=== PATIENT | male | born 1950 | race Caucasian/White ===

== ENCOUNTER → 2017-09-29 | Outpatient (CLI) | payer MEDICARE, BC ==
[~2017-09-29] MED LIST: ASCO500 PO; BUPR150ER PO; CYCL10 PO; CYSTEX TABLET1 EACH PO; DANTROLENE SODI PO; ENOX120I SC; Hytrin2 MG; Lisinopril2.5 MG PO; METH1TAB8 PO; Norco 5-325 Ta1 EACH PO; Omeprazole20 M1; Prinivil10 MG PO; TERA5 PO; VALA500 PO; VALACYCLOVIR1000 MG PO; Vitamin D400 UNI2 PO; WARF5 PO
== END | disposition home or self-care (01) ==
LOC: LAB SHORT 15:52 → LAB EV 15:52
DX: R22.31 Localized swelling, mass and lump, right upper limb (principal)
CPT/HCPCS: 84550

== ENCOUNTER → 2018-02-13 | Outpatient (CLI) | payer MEDICARE, BC ==
[2018-02-15 15:37] LABS: Campylobacter Sp Not Detected (NOT DETECT)
[2018-02-15 15:38] LABS: Adenovirus F 40/41 Not Detected (NOT DETECT); Astrovirus Not Detected (NOT DETECT); Cryptosporidium Not Detected (NOT DETECT); Cyclospora Cayetanensis Not Detected (NOT DETECT); E. Coli O157 Not Detected (NOT DETECT); Entamoeba Histolytica Not Detected (NOT DETECT); Enteroaggregative E. coli-EAEC Not Detected (NOT DETECT); Enteropathogenic E. coli-EPEC Not Detected (NOT DETECT); Enterotoxigenic E. coli-ETEC Not Detected (NOT DETECT); Giardia Lamblia Not Detected (NOT DETECT); Norovirus GI/GII Not Detected (NOT DETECT); Plesiomonas Shigelloides Not Detected (NOT DETECT); Rotavirus A Not Detected (NOT DETECT); Salmonella Sp Not Detected (NOT DETECT); Sapovirus Not Detected (NOT DETECT); Shiga Toxin-prod E. coli-STEC Not Detected (NOT DETECT); Shigella/Enteroin E. coli-EIEC Not Detected (NOT DETECT); Vibrio Cholerae Not Detected (NOT DETECT); Vibrio Sp Not Detected (NOT DETECT); Yersinia Enterocolitica Not Detected (NOT DETECT)
== END | disposition home or self-care (01) ==
LOC: LAB EV 02:00
PROVIDERS: Internal Medicine
DX: R19.7 Diarrhea, unspecified (principal)
CPT/HCPCS: 87507

== ENCOUNTER → 2019-02-15 | Outpatient (CLI) | payer MEDICARE, BC ==
[~2019-02-15] MED LIST changes: +ACET325 PO; +ASPI325 PO; +Acidophilus La100 GM PO; +COLCRYS0.6 MG PO; +CYAN500 PO; +Culturelle1 CAP PO; +DOXY100 PO; +GABA100 PO; -Hytrin2 MG; +Hytrin2 MG PO; +JUVEN PACKET1 EACH PO; +LEVO750 PO; -Omeprazole20 M1; +Omeprazole20 M1 PO; +Pedi-Dri 100,0060 GM TOP; +Uloric80 MG PO; +ZOLP5 PO
== END | disposition home or self-care (01) ==
LOC: LAB EV 11:30 → LAB SHORT 11:30
DX: N39.0 Urinary tract infection, site not specified (principal)
CPT/HCPCS: 87077; 87086; 87186

== ENCOUNTER → 2020-06-03 | Outpatient (CLI) | payer MEDICARE, BC ==
[~2020-06-03] MED LIST changes: +CEFTRIAXON1 GM/50 M1 IV; +HYDCHL25 PO; +METO25ER PO; +METOPROLOL SUCC25 MG PO; +VANCOMYCIN HCL1 G1 IV; +ZINC15 PO
[2020-06-03 15:23] LABS: BASOPHILS ABSOLUTE AUTO 0.02 K/mm3 (0.00-0.23); BASOPHILS PERCENT AUTO 0 % (0-2); EOSINOPHILS PERCENT AUTO 2 % (0-6); Hematocrit 43.1 % (37.0-53.0); Hemoglobin 14.5 g/dL (13.5-17.5); IMMATURE GRAN ABSOLUTE AUTO 0.04 K/mm3 (0.00-0.10); IMMATURE GRAN PERCENT AUTO 1 % (0-1); LYMPHOCYTES ABSOLUTE AUTO 1.48 K/mm3 (0.84-5.20); LYMPHOCYTES PERCENT AUTO 23 % (21-46); MONOCYTES ABSOLUTE AUTO 0.79 K/mm3 (0.16-1.47); MONOCYTES PERCENT AUTO 12 % (4-13); Mean Corpuscular HGB Conc 33.6 g/dL (31.5-36.5); Mean Corpuscular Volume 95 fL (80-100); Mean Platelet Volume 10.9 fL (9.1-12.4); NEUTROPHILS ABSOLUTE AUTO 3.98 K/mm3 (1.96-9.15); NEUTROPHILS PERCENT AUTO 62 % (41-73); Platelet Count 233 K/mm3 (150-400); RDW Coefficient Variation 14.3 % (11.7-14.2); Red Blood Cell Count 4.53 M/mm3 (4.30-5.90); White Blood Cell Count 6.41 K/mm3 (4.00-11.30)
[2020-06-03 15:37] LABS: Alanine Aminotransfer (ALT/SGP 16 U/L (12-78); Albumin, Blood 3.1 g/dL (3.4-5.0); Albumin/Globulin Ratio 0.8 (0.8-1.8); Alk Phos 109 U/L (40-126); Anion Gap 13 mmol/L (6-16); Aspartate Aminotrans (AST/SGOT 17 U/L (12-37); Bilirubin, Total 0.7 mg/dL (0.1-1.0); Blood Urea Nitrogen 8 mg/dL (8-24); CO2, Blood 25 mmol/L (21-32); Calcium, Blood 8.6 mg/dL (8.5-10.1); Chloride, Blood 102 mmol/L (98-108); Creatinine, Blood 0.89 mg/dL (0.60-1.20); Glomerular Filtration Rate >60 (60-); Glucose, Blood 123 mg/dL (70-99); Potassium, Blood 3.4 mmol/L (3.5-5.5); Sodium, Blood 140 mmol/L (136-145); Total Protein, Blood 7.1 g/dL (6.4-8.2)
== END ==
LOC: LAB EV 15:17 → LAB SHORT 15:17
PROVIDERS: General Practice
DX: L89.90 Pressure ulcer of unspecified site, unspecified stage (principal)
CPT/HCPCS: 80053; 85025; 87070; 87075; 87077; 87147; 87186; 87205

== ENCOUNTER 2020-06-07 09:09 | Day surgery (SDC) | payer OTHER, MEDICARE, BC ==
[~2020-06-07] VITALS: Ht 167.6 cm; Wt 71.0 kg
[~2020-06-07 09:09] MED LIST changes: -CEFTRIAXON1 GM/50 M1 IV; -HYDCHL25 PO; -METO25ER PO; -METOPROLOL SUCC25 MG PO; -VANCOMYCIN HCL1 G1 IV; -ZINC15 PO
[2020-06-08] MEDS ORDERED: CEFTRIAXON1 GM/50 M1 IV (16:19)
[2020-06-08] MEDS ORDERED: VANCOMYCIN HCL1 G1 IV (16:20)
[2020-06-08] MEDS ORDERED: ZOLP5 PO (16:21)
== END 2020-06-07 23:37 | disposition home or self-care (01) ==
LOC: WOUND 09:09
DX: I96 Gangrene, not elsewhere classified (principal); L89.620 Pressure ulcer of left heel, unstageable; L89.610 Pressure ulcer of right heel, unstageable; I89.0 Lymphedema, not elsewhere classified; H74.90 Unspecified disorder of middle ear and mastoid, unspecified ear; I10 Essential (primary) hypertension; M06.9 Rheumatoid arthritis, unspecified; M19.90 Unspecified osteoarthritis, unspecified site; G82.20 Paraplegia, unspecified; M10.9 Gout, unspecified; N31.9 Neuromuscular dysfunction of bladder, unspecified; E55.9 Vitamin D deficiency, unspecified; F32.9 Major depressive disorder, single episode, unspecified; F41.9 Anxiety disorder, unspecified; K21.9 Gastro-esophageal reflux disease without esophagitis; M89.49 Other hypertrophic osteoarthropathy, multiple sites; Z88.0 Allergy status to penicillin; Z88.1 Allergy status to other antibiotic agents; Z88.2 Allergy status to sulfonamides; Z79.82 Long term (current) use of aspirin; Z79.899 Other long term (current) drug therapy; Z87.891 Personal history of nicotine dependence
CPT/HCPCS: G0463

== ENCOUNTER 2020-06-08 14:41 | Day surgery (SDC) | payer OTHER, MEDICARE, BC ==
[2020-06-08] MEDS ORDERED: CEFTRIAXON1 GM/50 M1 IV (16:19)
[2020-06-08] MEDS ORDERED: VANCOMYCIN HCL1 G1 IV (16:20)
[2020-06-08] MEDS ORDERED: ZOLP5 PO (16:21)
== END 2020-06-08 17:21 | disposition home or self-care (01) ==
LOC: ATC 14:41
DX: M86.9 Osteomyelitis, unspecified (principal); L89.623 Pressure ulcer of left heel, stage 3; L89.613 Pressure ulcer of right heel, stage 3; Z87.891 Personal history of nicotine dependence; Z88.2 Allergy status to sulfonamides; Z88.1 Allergy status to other antibiotic agents
CPT/HCPCS: 96365; 96367; J0696; J3370; J7050

== ENCOUNTER 2020-06-09 07:15 | Day surgery (SDC) | payer OTHER, MEDICARE, BC ==
[~2020-06-09 07:15] MED LIST changes: +CEFTRIAXON1 GM/50 M1 IV; +VANCOMYCIN HCL1 G1 IV
== END 2020-06-09 15:55 | disposition home or self-care (01) ==
LOC: ATC 07:15
DX: M86.9 Osteomyelitis, unspecified (principal); M10.9 Gout, unspecified; M89.49 Other hypertrophic osteoarthropathy, multiple sites; G82.20 Paraplegia, unspecified; I10 Essential (primary) hypertension; N31.9 Neuromuscular dysfunction of bladder, unspecified; K21.9 Gastro-esophageal reflux disease without esophagitis; E55.9 Vitamin D deficiency, unspecified; F32.9 Major depressive disorder, single episode, unspecified; Z87.891 Personal history of nicotine dependence; Z79.2 Long term (current) use of antibiotics; Z79.82 Long term (current) use of aspirin; Z79.899 Other long term (current) drug therapy; Z88.0 Allergy status to penicillin; Z88.1 Allergy status to other antibiotic agents; Z88.2 Allergy status to sulfonamides
CPT/HCPCS: J0696; J3370

== ENCOUNTER 2020-06-12 13:27 | Day surgery (SDC) | payer OTHER, MEDICARE, BC ==
--- NOTE | 2020-06-12 15:50 | NUR ---
IV SITE WRAPPED WITH 2X2'S AND COBAN FOR INFUSION TOMORROW
== END 2020-06-12 15:15 | disposition home or self-care (01) ==
LOC: ATC 13:27
DX: M86.9 Osteomyelitis, unspecified (principal); L89.623 Pressure ulcer of left heel, stage 3; L89.613 Pressure ulcer of right heel, stage 3; G82.20 Paraplegia, unspecified; N31.9 Neuromuscular dysfunction of bladder, unspecified; M89.49 Other hypertrophic osteoarthropathy, multiple sites; M10.9 Gout, unspecified; I10 Essential (primary) hypertension; K21.9 Gastro-esophageal reflux disease without esophagitis; F41.9 Anxiety disorder, unspecified; E55.9 Vitamin D deficiency, unspecified; F32.9 Major depressive disorder, single episode, unspecified; Z87.891 Personal history of nicotine dependence; Z88.0 Allergy status to penicillin; Z88.1 Allergy status to other antibiotic agents; Z88.2 Allergy status to sulfonamides; Z79.82 Long term (current) use of aspirin; Z79.2 Long term (current) use of antibiotics; Z79.899 Other long term (current) drug therapy
CPT/HCPCS: 96365; J0696; J3370; J7050

== ENCOUNTER 2020-06-13 00:15 | Day surgery (SDC) | payer OTHER, MEDICARE, BC | END 2020-06-13 15:40 | disposition home or self-care (01) | LOC: ATC 00:15 | DX: M86.9 Osteomyelitis, unspecified (principal); L89.893 Pressure ulcer of other site, stage 3; G82.20 Paraplegia, unspecified; S24.103S Unspecified injury at T7-T10 level of thoracic spinal cord, sequela; N31.8 Other neuromuscular dysfunction of bladder; I10 Essential (primary) hypertension; K21.9 Gastro-esophageal reflux disease without esophagitis; E55.9 Vitamin D deficiency, unspecified; E53.8 Deficiency of other specified B group vitamins; Z87.891 Personal history of nicotine dependence; Z88.1 Allergy status to other antibiotic agents; Z88.2 Allergy status to sulfonamides; Z88.8 Allergy status to other drugs, medicaments and biological substances | CPT/HCPCS: 96365; J0696 ==

== ENCOUNTER 2020-06-14 00:09 | Day surgery (SDC) | payer OTHER, MEDICARE, BC | END 2020-06-14 15:10 | disposition home or self-care (01) | LOC: ATC 00:09 | DX: M86.9 Osteomyelitis, unspecified (principal); L89.613 Pressure ulcer of right heel, stage 3; L89.623 Pressure ulcer of left heel, stage 3; G82.20 Paraplegia, unspecified; N31.9 Neuromuscular dysfunction of bladder, unspecified; M10.9 Gout, unspecified; I10 Essential (primary) hypertension; E55.9 Vitamin D deficiency, unspecified; F32.9 Major depressive disorder, single episode, unspecified; M19.90 Unspecified osteoarthritis, unspecified site; Z88.0 Allergy status to penicillin; Z88.1 Allergy status to other antibiotic agents; Z88.2 Allergy status to sulfonamides; Z88.8 Allergy status to other drugs, medicaments and biological substances; Z79.2 Long term (current) use of antibiotics; Z79.82 Long term (current) use of aspirin; Z79.1 Long term (current) use of non-steroidal anti-inflammatories (NSAID); Z79.899 Other long term (current) drug therapy; Z87.891 Personal history of nicotine dependence | CPT/HCPCS: 96365; J0696 ==

== ENCOUNTER 2020-06-14 00:20 | Day surgery (SDC) | payer OTHER, MEDICARE, BC | END 2020-06-14 23:59 | disposition home or self-care (01) | LOC: WOUND 00:20 | DX: I96 Gangrene, not elsewhere classified (principal); L89.622 Pressure ulcer of left heel, stage 2; L89.612 Pressure ulcer of right heel, stage 2; M86.8X7 Other osteomyelitis, ankle and foot; N31.9 Neuromuscular dysfunction of bladder, unspecified; M89.49 Other hypertrophic osteoarthropathy, multiple sites; M10.9 Gout, unspecified; K21.9 Gastro-esophageal reflux disease without esophagitis; E55.9 Vitamin D deficiency, unspecified; I10 Essential (primary) hypertension; H74.90 Unspecified disorder of middle ear and mastoid, unspecified ear; I89.0 Lymphedema, not elsewhere classified; M06.9 Rheumatoid arthritis, unspecified; G82.20 Paraplegia, unspecified; F41.9 Anxiety disorder, unspecified; F32.9 Major depressive disorder, single episode, unspecified; Z87.891 Personal history of nicotine dependence; Z88.0 Allergy status to penicillin; Z88.1 Allergy status to other antibiotic agents; Z88.2 Allergy status to sulfonamides; Z79.82 Long term (current) use of aspirin; Z79.899 Other long term (current) drug therapy | CPT/HCPCS: A9270 ==

== ENCOUNTER 2020-06-15 01:58 | Day surgery (SDC) | payer OTHER, MEDICARE, BC | END 2020-06-15 14:50 | disposition home or self-care (01) | LOC: ATC 01:58 | DX: M86.9 Osteomyelitis, unspecified (principal); L89.613 Pressure ulcer of right heel, stage 3; L89.623 Pressure ulcer of left heel, stage 3; G82.20 Paraplegia, unspecified; N31.9 Neuromuscular dysfunction of bladder, unspecified; M10.9 Gout, unspecified; I10 Essential (primary) hypertension; E55.9 Vitamin D deficiency, unspecified; F32.9 Major depressive disorder, single episode, unspecified; M19.90 Unspecified osteoarthritis, unspecified site; Z88.0 Allergy status to penicillin; Z88.1 Allergy status to other antibiotic agents; Z88.2 Allergy status to sulfonamides; Z88.8 Allergy status to other drugs, medicaments and biological substances; Z79.2 Long term (current) use of antibiotics; Z79.82 Long term (current) use of aspirin; Z79.1 Long term (current) use of non-steroidal anti-inflammatories (NSAID); Z79.899 Other long term (current) drug therapy; Z87.891 Personal history of nicotine dependence | CPT/HCPCS: 96365; J0696 ==

== ENCOUNTER 2020-06-16 00:28 | Day surgery (SDC) | payer OTHER, MEDICARE, BC ==
--- NOTE | 2020-06-16 14:30 | NUR ---
WOUND CLEANSED WITH SKINTEGRITY CLEANSER. [facility] AND COVERED WITH A BORDERED FOAM DRESSING PER MD ORDERS.
== END 2020-06-16 14:23 | disposition home or self-care (01) ==
LOC: ATC 00:28
DX: M86.9 Osteomyelitis, unspecified (principal); L89.613 Pressure ulcer of right heel, stage 3; L89.623 Pressure ulcer of left heel, stage 3; G82.20 Paraplegia, unspecified; N31.9 Neuromuscular dysfunction of bladder, unspecified; M10.9 Gout, unspecified; I10 Essential (primary) hypertension; E55.9 Vitamin D deficiency, unspecified; F32.9 Major depressive disorder, single episode, unspecified; M19.90 Unspecified osteoarthritis, unspecified site; Z88.0 Allergy status to penicillin; Z88.1 Allergy status to other antibiotic agents; Z88.2 Allergy status to sulfonamides; Z88.8 Allergy status to other drugs, medicaments and biological substances; Z79.2 Long term (current) use of antibiotics; Z79.82 Long term (current) use of aspirin; Z79.1 Long term (current) use of non-steroidal anti-inflammatories (NSAID); Z79.899 Other long term (current) drug therapy; Z87.891 Personal history of nicotine dependence
CPT/HCPCS: 96365; 99212; J0696

== ENCOUNTER 2020-06-17 01:25 | Day surgery (SDC) | payer OTHER, MEDICARE, BC | END 2020-06-17 14:37 | disposition home or self-care (01) | LOC: ATC 01:25 | DX: L89.613 Pressure ulcer of right heel, stage 3 (principal); L89.623 Pressure ulcer of left heel, stage 3; M86.9 Osteomyelitis, unspecified; G82.20 Paraplegia, unspecified; N31.9 Neuromuscular dysfunction of bladder, unspecified; M10.9 Gout, unspecified; I10 Essential (primary) hypertension; E55.9 Vitamin D deficiency, unspecified; F32.9 Major depressive disorder, single episode, unspecified; M19.90 Unspecified osteoarthritis, unspecified site; K21.9 Gastro-esophageal reflux disease without esophagitis; I26.99 Other pulmonary embolism without acute cor pulmonale; E53.8 Deficiency of other specified B group vitamins; D75.89 Other specified diseases of blood and blood-forming organs; R73.09 Other abnormal glucose; F41.9 Anxiety disorder, unspecified; Z79.2 Long term (current) use of antibiotics; Z79.82 Long term (current) use of aspirin; Z79.1 Long term (current) use of non-steroidal anti-inflammatories (NSAID); Z79.899 Other long term (current) drug therapy; Z87.891 Personal history of nicotine dependence; Z88.1 Allergy status to other antibiotic agents; Z88.2 Allergy status to sulfonamides; Z88.8 Allergy status to other drugs, medicaments and biological substances | CPT/HCPCS: 96365; J0696 ==

== ENCOUNTER 2020-06-18 00:15 | Day surgery (SDC) | payer OTHER, MEDICARE, BC ==
--- NOTE | 2020-06-18 13:59 | NUR ---
CALLED DR BROWNLEE'S OFFICE REGARDING PT'S ELEVATED BP. PT ASYMPTOMATIC WITH ELEVATED BP. INFORMATION REGARDING BP TAKEN BY ANOOP AT DR BROWNLEE'S OFFICE. ANOOP STATES HE WILL GIVE DR BROWNLEE THE MESSAGE SOON SHE IS AVAILABLE. ANOOP ADVISED PT IS ONLY IN OUR CLINIC FOR THE NEXT 15-20 MIN AND I NEED DIRECTION DARRELL. HE STATES HE UNDERSTANDS AND HE WILL GIVE HER THE MESSAGE.
== END 2020-06-18 14:15 | disposition home or self-care (01) ==
LOC: ATC 00:15
DX: M86.9 Osteomyelitis, unspecified (principal); Z79.2 Long term (current) use of antibiotics; Z88.0 Allergy status to penicillin; Z88.1 Allergy status to other antibiotic agents; Z88.2 Allergy status to sulfonamides; Z88.8 Allergy status to other drugs, medicaments and biological substances; Z79.899 Other long term (current) drug therapy; Z79.82 Long term (current) use of aspirin
CPT/HCPCS: 96365; J0696

== ENCOUNTER 2020-06-18 00:31 | Day surgery (SDC) | payer OTHER, MEDICARE, BC | END 2020-06-18 23:02 | disposition home or self-care (01) | LOC: WOUND 00:31 | DX: L03.115 Cellulitis of right lower limb (principal); L03.116 Cellulitis of left lower limb; G82.21 Paraplegia, complete; L97.512 Non-pressure chronic ulcer of other part of right foot with fat layer exposed; L97.528 Non-pressure chronic ulcer of other part of left foot with other specified severity; Z79.82 Long term (current) use of aspirin; Z79.899 Other long term (current) drug therapy; Z88.0 Allergy status to penicillin; Z88.1 Allergy status to other antibiotic agents; Z88.2 Allergy status to sulfonamides | CPT/HCPCS: G0463 ==

== ENCOUNTER 2020-06-19 00:14 | Day surgery (SDC) | payer OTHER, MEDICARE, BC ==
[2020-06-20] MEDS ORDERED: METO25ER PO (14:08)
== END 2020-06-19 15:12 | disposition home or self-care (01) ==
LOC: ATC 00:14
DX: M86.9 Osteomyelitis, unspecified (principal); Z79.2 Long term (current) use of antibiotics; Z79.899 Other long term (current) drug therapy; Z88.0 Allergy status to penicillin; Z88.1 Allergy status to other antibiotic agents; Z88.2 Allergy status to sulfonamides; Z79.82 Long term (current) use of aspirin
CPT/HCPCS: 96365; J0696

== ENCOUNTER 2020-06-20 00:32 | Day surgery (SDC) | payer OTHER, MEDICARE, BC ==
--- NOTE | 2020-06-20 14:07 | NUR ---
IV SITE WRAPPED WITH 2X2S AND COBAN FOR USE TOMORROW
[2020-06-20] MEDS ORDERED: METO25ER PO (14:08)
[2020-06-21] MEDS ORDERED: METOPROLOL SUCC25 MG PO (13:56)
== END 2020-06-20 14:08 | disposition home or self-care (01) ==
LOC: ATC 00:32
DX: M86.9 Osteomyelitis, unspecified (principal); L89.623 Pressure ulcer of left heel, stage 3; L89.613 Pressure ulcer of right heel, stage 3; G82.20 Paraplegia, unspecified; N31.9 Neuromuscular dysfunction of bladder, unspecified; M10.9 Gout, unspecified; I10 Essential (primary) hypertension; K21.9 Gastro-esophageal reflux disease without esophagitis; E55.9 Vitamin D deficiency, unspecified; Z87.891 Personal history of nicotine dependence; Z79.2 Long term (current) use of antibiotics; Z88.0 Allergy status to penicillin; Z88.1 Allergy status to other antibiotic agents; Z88.2 Allergy status to sulfonamides; Z79.82 Long term (current) use of aspirin; Z79.899 Other long term (current) drug therapy
CPT/HCPCS: 96365; J0696

== ENCOUNTER 2020-06-20 00:44 | Day surgery (SDC) | payer OTHER, MEDICARE, BC ==
[2020-06-20] MEDS ORDERED: METO25ER PO (14:08)
[2020-06-21] MEDS ORDERED: METOPROLOL SUCC25 MG PO (13:56)
== END 2020-06-20 23:14 | disposition home or self-care (01) ==
LOC: WOUND 00:44
DX: L97.512 Non-pressure chronic ulcer of other part of right foot with fat layer exposed (principal); L97.528 Non-pressure chronic ulcer of other part of left foot with other specified severity; M86.9 Osteomyelitis, unspecified; G82.21 Paraplegia, complete
CPT/HCPCS: G0463

== ENCOUNTER 2020-06-21 01:27 | Day surgery (SDC) | payer OTHER, MEDICARE, BC ==
[~2020-06-21 01:27] MED LIST changes: +METO25ER PO
[2020-06-21] MEDS ORDERED: METOPROLOL SUCC25 MG PO (13:56)
== END 2020-06-21 14:17 | disposition home or self-care (01) ==
LOC: ATC 01:27
DX: M86.9 Osteomyelitis, unspecified (principal); L89.623 Pressure ulcer of left heel, stage 3; L89.613 Pressure ulcer of right heel, stage 3; G82.20 Paraplegia, unspecified; N31.9 Neuromuscular dysfunction of bladder, unspecified; M10.9 Gout, unspecified; I10 Essential (primary) hypertension; K21.9 Gastro-esophageal reflux disease without esophagitis; E55.9 Vitamin D deficiency, unspecified; Z87.891 Personal history of nicotine dependence; Z79.2 Long term (current) use of antibiotics; Z79.82 Long term (current) use of aspirin; Z79.899 Other long term (current) drug therapy; Z88.0 Allergy status to penicillin; Z88.1 Allergy status to other antibiotic agents; Z88.2 Allergy status to sulfonamides
CPT/HCPCS: 96365; J0696

== ENCOUNTER 2020-06-22 00:25 | Day surgery (SDC) | payer OTHER, MEDICARE, BC ==
[~2020-06-22 00:25] MED LIST changes: +METOPROLOL SUCC25 MG PO
== END 2020-06-22 15:05 | disposition home or self-care (01) ==
LOC: ATC 00:25
DX: M86.9 Osteomyelitis, unspecified (principal); L89.893 Pressure ulcer of other site, stage 3; L89.623 Pressure ulcer of left heel, stage 3; G82.20 Paraplegia, unspecified; I10 Essential (primary) hypertension; S24.103S Unspecified injury at T7-T10 level of thoracic spinal cord, sequela; Z88.1 Allergy status to other antibiotic agents; Z88.2 Allergy status to sulfonamides; Z86.711 Personal history of pulmonary embolism; Z87.891 Personal history of nicotine dependence; Z99.3 Dependence on wheelchair; V00-Y99 External causes of morbidity
CPT/HCPCS: 96365; J0696

== ENCOUNTER 2020-06-22 00:33 | Day surgery (SDC) | payer OTHER, MEDICARE, BC | END 2020-06-22 22:49 | disposition home or self-care (01) | LOC: WOUND 00:33 | DX: L97.512 Non-pressure chronic ulcer of other part of right foot with fat layer exposed (principal); L97.528 Non-pressure chronic ulcer of other part of left foot with other specified severity; M86.9 Osteomyelitis, unspecified; G82.21 Paraplegia, complete; I10 Essential (primary) hypertension; K21.9 Gastro-esophageal reflux disease without esophagitis; F41.8 Other specified anxiety disorders; G82.20 Paraplegia, unspecified; Z87.891 Personal history of nicotine dependence ==

== ENCOUNTER 2020-06-23 01:22 | Day surgery (SDC) | payer OTHER, MEDICARE, BC | END 2020-06-23 14:31 | disposition home or self-care (01) | LOC: ATC 01:22 | DX: M86.9 Osteomyelitis, unspecified (principal); L89.893 Pressure ulcer of other site, stage 3; G82.20 Paraplegia, unspecified; S24.103S Unspecified injury at T7-T10 level of thoracic spinal cord, sequela; M15.9 Polyosteoarthritis, unspecified; M10.9 Gout, unspecified; I10 Essential (primary) hypertension; K21.9 Gastro-esophageal reflux disease without esophagitis; E55.9 Vitamin D deficiency, unspecified; N31.9 Neuromuscular dysfunction of bladder, unspecified; Z86.711 Personal history of pulmonary embolism; Z88.0 Allergy status to penicillin; Z88.2 Allergy status to sulfonamides; Z79.82 Long term (current) use of aspirin; Z87.891 Personal history of nicotine dependence | CPT/HCPCS: 96365; J0696 ==

== ENCOUNTER 2020-06-24 00:21 | Day surgery (SDC) | payer OTHER, MEDICARE, BC | END 2020-06-24 14:48 | disposition home or self-care (01) | LOC: ATC 00:21 | DX: M86.9 Osteomyelitis, unspecified (principal); G82.20 Paraplegia, unspecified; N31.9 Neuromuscular dysfunction of bladder, unspecified; S24.103S Unspecified injury at T7-T10 level of thoracic spinal cord, sequela; E55.9 Vitamin D deficiency, unspecified; E53.8 Deficiency of other specified B group vitamins; I10 Essential (primary) hypertension; M10.9 Gout, unspecified; K21.9 Gastro-esophageal reflux disease without esophagitis; Z87.891 Personal history of nicotine dependence; Z88.1 Allergy status to other antibiotic agents; Z88.2 Allergy status to sulfonamides | CPT/HCPCS: 96365; J0696 ==

== ENCOUNTER 2020-06-25 00:15 | Day surgery (SDC) | payer OTHER, MEDICARE, BC | END 2020-06-25 13:56 | disposition home or self-care (01) | LOC: ATC 00:15 | DX: M86.9 Osteomyelitis, unspecified (principal); L89.623 Pressure ulcer of left heel, stage 3; L89.613 Pressure ulcer of right heel, stage 3; M10.9 Gout, unspecified; E55.9 Vitamin D deficiency, unspecified; I10 Essential (primary) hypertension; Z88.2 Allergy status to sulfonamides; Z88.1 Allergy status to other antibiotic agents; Z87.891 Personal history of nicotine dependence | CPT/HCPCS: 96365; J0696 ==

== ENCOUNTER 2020-06-25 00:35 | Day surgery (SDC) | payer OTHER, MEDICARE, BC | END 2020-06-25 22:49 | disposition home or self-care (01) | LOC: WOUND 00:35 | DX: L97.512 Non-pressure chronic ulcer of other part of right foot with fat layer exposed (principal); L97.528 Non-pressure chronic ulcer of other part of left foot with other specified severity; M86.9 Osteomyelitis, unspecified; G82.21 Paraplegia, complete | CPT/HCPCS: G0463 ==

== ENCOUNTER 2020-06-26 00:17 | Day surgery (SDC) | payer OTHER, MEDICARE, BC | END 2020-06-26 15:15 | disposition home or self-care (01) | LOC: ATC 00:17 | DX: M86.9 Osteomyelitis, unspecified (principal); L89.613 Pressure ulcer of right heel, stage 3 | CPT/HCPCS: 96365; J0696 ==

== ENCOUNTER 2020-06-27 00:08 | Day surgery (SDC) | payer OTHER, MEDICARE, BC | END 2020-06-27 14:03 | disposition home or self-care (01) | LOC: ATC 00:08 | DX: L89.613 Pressure ulcer of right heel, stage 3 (principal); L89.623 Pressure ulcer of left heel, stage 3; M86.9 Osteomyelitis, unspecified; Z87.891 Personal history of nicotine dependence; Z79.899 Other long term (current) drug therapy; Z88.0 Allergy status to penicillin; Z88.2 Allergy status to sulfonamides | CPT/HCPCS: 96365; J0696 ==

== ENCOUNTER 2020-06-27 00:18 | Day surgery (SDC) | payer OTHER, MEDICARE, BC | END 2020-06-27 22:40 | disposition home or self-care (01) | LOC: WOUND 00:18 | DX: L97.512 Non-pressure chronic ulcer of other part of right foot with fat layer exposed (principal); L97.528 Non-pressure chronic ulcer of other part of left foot with other specified severity; M06.9 Rheumatoid arthritis, unspecified; G82.21 Paraplegia, complete | CPT/HCPCS: G0463 ==

== ENCOUNTER 2020-06-28 00:16 | Day surgery (SDC) | payer OTHER, MEDICARE, BC | END 2020-06-28 14:00 | disposition home or self-care (01) | LOC: ATC 00:16 | DX: M86.9 Osteomyelitis, unspecified (principal); L89.893 Pressure ulcer of other site, stage 3; G82.20 Paraplegia, unspecified; N31.9 Neuromuscular dysfunction of bladder, unspecified; S24.103S Unspecified injury at T7-T10 level of thoracic spinal cord, sequela; I10 Essential (primary) hypertension; M10.9 Gout, unspecified; K21.9 Gastro-esophageal reflux disease without esophagitis; F32.9 Major depressive disorder, single episode, unspecified; X58.XXXS Exposure to other specified factors, sequela; Z86.711 Personal history of pulmonary embolism; Z87.891 Personal history of nicotine dependence; Z88.1 Allergy status to other antibiotic agents; Z88.2 Allergy status to sulfonamides; Z88.8 Allergy status to other drugs, medicaments and biological substances | CPT/HCPCS: 96365; J0696 ==

== ENCOUNTER 2020-06-29 00:14 | Day surgery (SDC) | payer OTHER, MEDICARE, BC | END 2020-06-29 14:52 | disposition home or self-care (01) | LOC: ATC 00:14 | DX: M86.9 Osteomyelitis, unspecified (principal); I10 Essential (primary) hypertension; L89.893 Pressure ulcer of other site, stage 3; Z87.891 Personal history of nicotine dependence | CPT/HCPCS: 96365; J0696 ==

== ENCOUNTER 2020-06-30 03:45 | Day surgery (SDC) | payer OTHER, MEDICARE, BC | END 2020-06-30 15:06 | disposition home or self-care (01) | LOC: ATC 03:45 | DX: M86.9 Osteomyelitis, unspecified (principal); L89.893 Pressure ulcer of other site, stage 3; G82.20 Paraplegia, unspecified; N31.9 Neuromuscular dysfunction of bladder, unspecified; S24.103S Unspecified injury at T7-T10 level of thoracic spinal cord, sequela; I10 Essential (primary) hypertension; M10.9 Gout, unspecified; K21.9 Gastro-esophageal reflux disease without esophagitis; F32.9 Major depressive disorder, single episode, unspecified; X58.XXXS Exposure to other specified factors, sequela; Z86.711 Personal history of pulmonary embolism; Z87.891 Personal history of nicotine dependence; Z88.1 Allergy status to other antibiotic agents; Z88.2 Allergy status to sulfonamides; Z88.8 Allergy status to other drugs, medicaments and biological substances | CPT/HCPCS: 96365; J0696 ==

== ENCOUNTER 2020-07-01 02:24 | Day surgery (SDC) | payer OTHER, MEDICARE, BC | END 2020-07-01 14:50 | disposition home or self-care (01) | LOC: ATC 02:24 | DX: M86.9 Osteomyelitis, unspecified (principal) | CPT/HCPCS: 96365; J0696 ==

== ENCOUNTER 2020-07-02 00:27 | Day surgery (SDC) | payer OTHER, MEDICARE, BC | END 2020-07-02 14:08 | disposition home or self-care (01) | LOC: ATC 00:27 | DX: M86.9 Osteomyelitis, unspecified (principal); L89.893 Pressure ulcer of other site, stage 3; L89.623 Pressure ulcer of left heel, stage 3; G82.20 Paraplegia, unspecified; S24.103S Unspecified injury at T7-T10 level of thoracic spinal cord, sequela; N31.9 Neuromuscular dysfunction of bladder, unspecified; M15.9 Polyosteoarthritis, unspecified; M10.9 Gout, unspecified; I10 Essential (primary) hypertension; K21.9 Gastro-esophageal reflux disease without esophagitis; E55.9 Vitamin D deficiency, unspecified; Z86.711 Personal history of pulmonary embolism; Z87.891 Personal history of nicotine dependence; Z88.0 Allergy status to penicillin; Z88.2 Allergy status to sulfonamides; Z88.1 Allergy status to other antibiotic agents; Z79.82 Long term (current) use of aspirin | CPT/HCPCS: 96365; J0696 ==

== ENCOUNTER 2020-07-02 00:43 | Day surgery (SDC) | payer OTHER, MEDICARE, BC | END 2020-07-02 23:45 | LOC: WOUND 00:43 | DX: L97.512 Non-pressure chronic ulcer of other part of right foot with fat layer exposed (principal); L97.528 Non-pressure chronic ulcer of other part of left foot with other specified severity; M86.9 Osteomyelitis, unspecified; G82.21 Paraplegia, complete; G82.20 Paraplegia, unspecified; N31.9 Neuromuscular dysfunction of bladder, unspecified; M19.90 Unspecified osteoarthritis, unspecified site; M10.9 Gout, unspecified; K21.9 Gastro-esophageal reflux disease without esophagitis; E55.9 Vitamin D deficiency, unspecified; E53.8 Deficiency of other specified B group vitamins; I26.99 Other pulmonary embolism without acute cor pulmonale; I10 Essential (primary) hypertension; F41.8 Other specified anxiety disorders; Z87.891 Personal history of nicotine dependence | CPT/HCPCS: G0463 ==

== ENCOUNTER 2020-07-03 00:06 | Day surgery (SDC) | payer OTHER, MEDICARE, BC | END 2020-07-03 14:00 | disposition home or self-care (01) | LOC: ATC 00:06 | DX: M86.9 Osteomyelitis, unspecified (principal); I10 Essential (primary) hypertension; L89.623 Pressure ulcer of left heel, stage 3; L89.613 Pressure ulcer of right heel, stage 3; M10.9 Gout, unspecified; K21.9 Gastro-esophageal reflux disease without esophagitis; Z88.1 Allergy status to other antibiotic agents; Z88.2 Allergy status to sulfonamides; Z87.891 Personal history of nicotine dependence | CPT/HCPCS: 96365; J0696 ==

== ENCOUNTER 2020-07-04 00:09 | Day surgery (SDC) | payer OTHER, MEDICARE, BC | END 2020-07-04 14:04 | disposition home or self-care (01) | LOC: ATC 00:09 | DX: M86.9 Osteomyelitis, unspecified (principal); L89.893 Pressure ulcer of other site, stage 3; G82.20 Paraplegia, unspecified; S24.103S Unspecified injury at T7-T10 level of thoracic spinal cord, sequela; X58.XXXS Exposure to other specified factors, sequela; I10 Essential (primary) hypertension; K21.9 Gastro-esophageal reflux disease without esophagitis; F32.9 Major depressive disorder, single episode, unspecified; M10.9 Gout, unspecified; M19.90 Unspecified osteoarthritis, unspecified site; Z87.891 Personal history of nicotine dependence; N31.9 Neuromuscular dysfunction of bladder, unspecified; Z79.899 Other long term (current) drug therapy | CPT/HCPCS: 96365; J0696 ==

== ENCOUNTER 2020-07-04 00:19 | Day surgery (SDC) | payer OTHER, MEDICARE, BC | END 2020-07-04 23:45 | disposition home or self-care (01) | LOC: WOUND 00:19 | DX: L97.512 Non-pressure chronic ulcer of other part of right foot with fat layer exposed (principal); L97.528 Non-pressure chronic ulcer of other part of left foot with other specified severity; M86.9 Osteomyelitis, unspecified; G82.21 Paraplegia, complete | CPT/HCPCS: G0463 ==

== ENCOUNTER 2020-07-05 00:10 | Day surgery (SDC) | payer OTHER, MEDICARE, BC | END 2020-07-05 14:03 | disposition home or self-care (01) | LOC: ATC 00:10 | DX: M86.9 Osteomyelitis, unspecified (principal); G82.20 Paraplegia, unspecified; S24.103S Unspecified injury at T7-T10 level of thoracic spinal cord, sequela; N31.9 Neuromuscular dysfunction of bladder, unspecified; I10 Essential (primary) hypertension; M10.9 Gout, unspecified; E55.9 Vitamin D deficiency, unspecified; E53.8 Deficiency of other specified B group vitamins; M15.9 Polyosteoarthritis, unspecified; K21.9 Gastro-esophageal reflux disease without esophagitis; Z79.2 Long term (current) use of antibiotics; Z79.82 Long term (current) use of aspirin; Z86.711 Personal history of pulmonary embolism; Z87.891 Personal history of nicotine dependence; Z88.1 Allergy status to other antibiotic agents; Z88.2 Allergy status to sulfonamides; Z88.8 Allergy status to other drugs, medicaments and biological substances; X58.XXXS Exposure to other specified factors, sequela | CPT/HCPCS: 96365; J0696 ==

== ENCOUNTER 2020-07-06 01:49 | Day surgery (SDC) | payer OTHER, MEDICARE, BC ==
--- NOTE | 2020-07-06 15:37 | NUR ---
IV PADDED WITH 2X2'S AND [place] WRAPPED WITH COBAN. NETTING PLACED OVER IV SITE.
== END 2020-07-06 14:07 | disposition home or self-care (01) ==
LOC: ATC 01:49
DX: M86.9 Osteomyelitis, unspecified (principal); L89.623 Pressure ulcer of left heel, stage 3; L89.613 Pressure ulcer of right heel, stage 3; G82.20 Paraplegia, unspecified; S24.103S Unspecified injury at T7-T10 level of thoracic spinal cord, sequela; X58.XXXS Exposure to other specified factors, sequela; N31.9 Neuromuscular dysfunction of bladder, unspecified; M15.9 Polyosteoarthritis, unspecified; M10.9 Gout, unspecified; I10 Essential (primary) hypertension; K21.9 Gastro-esophageal reflux disease without esophagitis; E55.9 Vitamin D deficiency, unspecified; E53.8 Deficiency of other specified B group vitamins; Z86.711 Personal history of pulmonary embolism; Z87.891 Personal history of nicotine dependence; Z88.1 Allergy status to other antibiotic agents; Z88.0 Allergy status to penicillin; Z88.2 Allergy status to sulfonamides; Z79.82 Long term (current) use of aspirin
CPT/HCPCS: 96365; J0696

== ENCOUNTER 2020-07-06 02:16 | Day surgery (SDC) | payer OTHER, MEDICARE, BC | END 2020-07-06 23:45 | disposition home or self-care (01) | LOC: WOUND 02:16 | DX: L97.512 Non-pressure chronic ulcer of other part of right foot with fat layer exposed (principal); L97.528 Non-pressure chronic ulcer of other part of left foot with other specified severity; M86.9 Osteomyelitis, unspecified; G82.21 Paraplegia, complete | CPT/HCPCS: A9270; G0463 ==

== ENCOUNTER 2020-07-07 01:38 | Day surgery (SDC) | payer OTHER, MEDICARE, BC | END 2020-07-07 14:36 | disposition home or self-care (01) | LOC: ATC 01:38 | DX: M86.9 Osteomyelitis, unspecified (principal); L89.623 Pressure ulcer of left heel, stage 3; L89.613 Pressure ulcer of right heel, stage 3; G82.20 Paraplegia, unspecified; N31.9 Neuromuscular dysfunction of bladder, unspecified; S24.103S Unspecified injury at T7-T10 level of thoracic spinal cord, sequela; X58.XXXS Exposure to other specified factors, sequela; M15.9 Polyosteoarthritis, unspecified; M10.9 Gout, unspecified; I10 Essential (primary) hypertension; K21.9 Gastro-esophageal reflux disease without esophagitis; E55.9 Vitamin D deficiency, unspecified; E53.8 Deficiency of other specified B group vitamins; Z86.711 Personal history of pulmonary embolism; Z87.891 Personal history of nicotine dependence; Z88.1 Allergy status to other antibiotic agents; Z88.0 Allergy status to penicillin; Z88.2 Allergy status to sulfonamides; Z79.82 Long term (current) use of aspirin | CPT/HCPCS: 96365; J0696 ==

== ENCOUNTER 2020-07-08 01:26 | Day surgery (SDC) | payer OTHER, MEDICARE, BC ==
--- NOTE | 2020-07-08 14:50 | NUR ---
IV HARDER TO FLUSH TODAY. ANTIBITOIC INFUSED WITHOUT DIFFICULTY.
== END 2020-07-08 14:45 | disposition home or self-care (01) ==
LOC: ATC 01:26
DX: M86.9 Osteomyelitis, unspecified (principal); G82.20 Paraplegia, unspecified; S24.103S Unspecified injury at T7-T10 level of thoracic spinal cord, sequela; N31.9 Neuromuscular dysfunction of bladder, unspecified; M10.9 Gout, unspecified; M15.9 Polyosteoarthritis, unspecified; I10 Essential (primary) hypertension; E55.9 Vitamin D deficiency, unspecified; E53.8 Deficiency of other specified B group vitamins; K21.9 Gastro-esophageal reflux disease without esophagitis; X58.XXXS Exposure to other specified factors, sequela; Z79.2 Long term (current) use of antibiotics; Z79.82 Long term (current) use of aspirin; Z87.891 Personal history of nicotine dependence; Z88.1 Allergy status to other antibiotic agents; Z88.2 Allergy status to sulfonamides; Z88.8 Allergy status to other drugs, medicaments and biological substances
CPT/HCPCS: 96365; J0696

== ENCOUNTER 2020-07-09 00:28 | Day surgery (SDC) | payer OTHER, MEDICARE, BC | END 2020-07-09 14:20 | disposition home or self-care (01) | LOC: ATC 00:28 | DX: M86.9 Osteomyelitis, unspecified (principal); L89.623 Pressure ulcer of left heel, stage 3; L89.613 Pressure ulcer of right heel, stage 3; G82.20 Paraplegia, unspecified; N31.9 Neuromuscular dysfunction of bladder, unspecified; S24.103S Unspecified injury at T7-T10 level of thoracic spinal cord, sequela; X58.XXXS Exposure to other specified factors, sequela; M15.9 Polyosteoarthritis, unspecified; M10.9 Gout, unspecified; I10 Essential (primary) hypertension; K21.9 Gastro-esophageal reflux disease without esophagitis; E55.9 Vitamin D deficiency, unspecified; E53.8 Deficiency of other specified B group vitamins; Z86.711 Personal history of pulmonary embolism; Z87.891 Personal history of nicotine dependence; Z88.0 Allergy status to penicillin; Z88.1 Allergy status to other antibiotic agents; Z88.2 Allergy status to sulfonamides; Z79.82 Long term (current) use of aspirin | CPT/HCPCS: 96365; J0696 ==

== ENCOUNTER 2020-07-09 00:39 | Day surgery (SDC) | payer OTHER, MEDICARE, BC | END 2020-07-09 23:40 | disposition home or self-care (01) | LOC: WOUND 00:39 | DX: L97.512 Non-pressure chronic ulcer of other part of right foot with fat layer exposed (principal); L97.528 Non-pressure chronic ulcer of other part of left foot with other specified severity; M86.9 Osteomyelitis, unspecified; G82.21 Paraplegia, complete | CPT/HCPCS: G0463 ==

== ENCOUNTER 2020-07-10 00:33 | Day surgery (SDC) | payer OTHER, MEDICARE, BC | END 2020-07-10 14:08 | disposition home or self-care (01) | LOC: ATC 00:33 | DX: M86.9 Osteomyelitis, unspecified (principal); I10 Essential (primary) hypertension; M15.9 Polyosteoarthritis, unspecified; G82.20 Paraplegia, unspecified; N31.9 Neuromuscular dysfunction of bladder, unspecified; E53.8 Deficiency of other specified B group vitamins; K21.9 Gastro-esophageal reflux disease without esophagitis; F32.9 Major depressive disorder, single episode, unspecified; I26.99 Other pulmonary embolism without acute cor pulmonale; Z87.891 Personal history of nicotine dependence; Z88.0 Allergy status to penicillin; Z88.2 Allergy status to sulfonamides; Z79.82 Long term (current) use of aspirin | CPT/HCPCS: 96365; J0696 ==

== ENCOUNTER 2020-07-11 00:07 | Day surgery (SDC) | payer OTHER, MEDICARE, BC | END 2020-07-11 13:55 | disposition home or self-care (01) | LOC: ATC 00:07 | DX: M86.9 Osteomyelitis, unspecified (principal); L89.623 Pressure ulcer of left heel, stage 3; L89.613 Pressure ulcer of right heel, stage 3; G82.20 Paraplegia, unspecified; N31.9 Neuromuscular dysfunction of bladder, unspecified; S24.103S Unspecified injury at T7-T10 level of thoracic spinal cord, sequela; X58.XXXS Exposure to other specified factors, sequela; M15.9 Polyosteoarthritis, unspecified; M10.9 Gout, unspecified; K21.9 Gastro-esophageal reflux disease without esophagitis; E55.9 Vitamin D deficiency, unspecified; E53.8 Deficiency of other specified B group vitamins; Z86.711 Personal history of pulmonary embolism; Z87.891 Personal history of nicotine dependence; Z88.0 Allergy status to penicillin; Z88.1 Allergy status to other antibiotic agents; Z88.2 Allergy status to sulfonamides; Z79.82 Long term (current) use of aspirin | CPT/HCPCS: 96365; J0696 ==

== ENCOUNTER 2020-07-11 00:17 | Day surgery (SDC) | payer OTHER, MEDICARE, BC | END 2020-07-11 23:14 | disposition home or self-care (01) | LOC: WOUND 00:17 | DX: L97.512 Non-pressure chronic ulcer of other part of right foot with fat layer exposed (principal); L97.528 Non-pressure chronic ulcer of other part of left foot with other specified severity; M86.9 Osteomyelitis, unspecified; G82.21 Paraplegia, complete | CPT/HCPCS: G0463 ==

== ENCOUNTER 2020-07-12 00:18 | Day surgery (SDC) | payer OTHER, MEDICARE, BC | END 2020-07-12 11:16 | disposition home or self-care (01) | LOC: ATC 00:18 | DX: M86.9 Osteomyelitis, unspecified (principal); I10 Essential (primary) hypertension; L89.623 Pressure ulcer of left heel, stage 3; L89.613 Pressure ulcer of right heel, stage 3; Z88.1 Allergy status to other antibiotic agents; Z88.2 Allergy status to sulfonamides | CPT/HCPCS: 96365; J0696 ==

== ENCOUNTER 2020-07-13 01:58 | Day surgery (SDC) | payer OTHER, MEDICARE, BC | END 2020-07-13 14:02 | disposition home or self-care (01) | LOC: ATC 01:58 | DX: M86.9 Osteomyelitis, unspecified (principal); L89.893 Pressure ulcer of other site, stage 3; G82.20 Paraplegia, unspecified; S24.103S Unspecified injury at T7-T10 level of thoracic spinal cord, sequela; N31.8 Other neuromuscular dysfunction of bladder; I10 Essential (primary) hypertension; E55.9 Vitamin D deficiency, unspecified; K21.9 Gastro-esophageal reflux disease without esophagitis; E53.8 Deficiency of other specified B group vitamins; N31.9 Neuromuscular dysfunction of bladder, unspecified; Z87.891 Personal history of nicotine dependence; Z88.1 Allergy status to other antibiotic agents; Z88.2 Allergy status to sulfonamides; Z88.8 Allergy status to other drugs, medicaments and biological substances | CPT/HCPCS: 96365; J0696 ==

== ENCOUNTER 2020-07-13 02:28 | Day surgery (SDC) | payer OTHER, MEDICARE, BC | END 2020-07-13 22:47 | disposition home or self-care (01) | LOC: WOUND 02:28 | DX: L89.892 Pressure ulcer of other site, stage 2 (principal); M86.9 Osteomyelitis, unspecified; G82.21 Paraplegia, complete; N31.8 Other neuromuscular dysfunction of bladder; M19.90 Unspecified osteoarthritis, unspecified site; E53.8 Deficiency of other specified B group vitamins; E55.9 Vitamin D deficiency, unspecified; I10 Essential (primary) hypertension; K21.9 Gastro-esophageal reflux disease without esophagitis; M10.9 Gout, unspecified; Z87.891 Personal history of nicotine dependence ==

== ENCOUNTER 2020-07-14 00:18 | Day surgery (SDC) | payer OTHER, MEDICARE, BC ==
[~2020-07-14] VITALS: Wt 83.9 kg
== END 2020-07-14 14:30 | disposition home or self-care (01) ==
LOC: ATC 00:18
DX: M86.9 Osteomyelitis, unspecified (principal); L89.893 Pressure ulcer of other site, stage 3; G82.20 Paraplegia, unspecified; N31.9 Neuromuscular dysfunction of bladder, unspecified; I10 Essential (primary) hypertension; E55.9 Vitamin D deficiency, unspecified; K21.9 Gastro-esophageal reflux disease without esophagitis; M10.9 Gout, unspecified; Z86.711 Personal history of pulmonary embolism; Z87.891 Personal history of nicotine dependence
CPT/HCPCS: 96365; J0696

== ENCOUNTER 2020-07-16 08:59 | Day surgery (SDC) | payer OTHER, MEDICARE, BC | END 2020-07-16 23:59 | disposition home or self-care (01) | LOC: WOUND 08:59 | DX: L97.512 Non-pressure chronic ulcer of other part of right foot with fat layer exposed (principal); L97.522 Non-pressure chronic ulcer of other part of left foot with fat layer exposed | CPT/HCPCS: G0463 ==

== ENCOUNTER 2020-07-18 01:40 | Day surgery (SDC) | payer OTHER, MEDICARE, BC | END 2020-07-18 23:04 | disposition home or self-care (01) | LOC: WOUND 01:40 | DX: L97.512 Non-pressure chronic ulcer of other part of right foot with fat layer exposed (principal); L97.522 Non-pressure chronic ulcer of other part of left foot with fat layer exposed; G82.20 Paraplegia, unspecified; N31.9 Neuromuscular dysfunction of bladder, unspecified; M15.9 Polyosteoarthritis, unspecified; M10.9 Gout, unspecified; K21.9 Gastro-esophageal reflux disease without esophagitis; I10 Essential (primary) hypertension; I26.99 Other pulmonary embolism without acute cor pulmonale; E53.8 Deficiency of other specified B group vitamins; Z87.891 Personal history of nicotine dependence | CPT/HCPCS: G0463 ==

== ENCOUNTER 2020-07-20 00:49 | Day surgery (SDC) | payer OTHER, MEDICARE, BC | END 2020-07-20 23:50 | disposition home or self-care (01) | LOC: WOUND 00:49 | DX: L89.892 Pressure ulcer of other site, stage 2 (principal); M86.9 Osteomyelitis, unspecified; G82.21 Paraplegia, complete; N31.9 Neuromuscular dysfunction of bladder, unspecified; M15.9 Polyosteoarthritis, unspecified; M10.9 Gout, unspecified; K21.9 Gastro-esophageal reflux disease without esophagitis; I10 Essential (primary) hypertension; I26.99 Other pulmonary embolism without acute cor pulmonale; E53.8 Deficiency of other specified B group vitamins; Z87.891 Personal history of nicotine dependence ==

== ENCOUNTER 2020-07-27 01:54 | Day surgery (SDC) | payer OTHER, MEDICARE, BC | END 2020-07-27 22:50 | disposition home or self-care (01) | LOC: WOUND 01:54 | DX: L89.892 Pressure ulcer of other site, stage 2 (principal); M86.9 Osteomyelitis, unspecified; G82.20 Paraplegia, unspecified; N31.9 Neuromuscular dysfunction of bladder, unspecified; I10 Essential (primary) hypertension; E55.9 Vitamin D deficiency, unspecified; M10.9 Gout, unspecified; E53.8 Deficiency of other specified B group vitamins; K21.9 Gastro-esophageal reflux disease without esophagitis; Z87.891 Personal history of nicotine dependence; Z86.711 Personal history of pulmonary embolism ==

== ENCOUNTER 2020-08-03 01:08 | Day surgery (SDC) | payer OTHER, MEDICARE, BC | END 2020-08-03 22:49 | disposition home or self-care (01) | LOC: WOUND 01:08 | DX: L89.892 Pressure ulcer of other site, stage 2 (principal); M86.9 Osteomyelitis, unspecified; G82.21 Paraplegia, complete; N31.9 Neuromuscular dysfunction of bladder, unspecified; M15.9 Polyosteoarthritis, unspecified; M10.9 Gout, unspecified; K21.9 Gastro-esophageal reflux disease without esophagitis; E55.9 Vitamin D deficiency, unspecified; E53.8 Deficiency of other specified B group vitamins; I10 Essential (primary) hypertension; Z86.711 Personal history of pulmonary embolism; Z87.891 Personal history of nicotine dependence ==

== ENCOUNTER 2020-08-10 00:54 | Day surgery (SDC) | payer OTHER, MEDICARE, BC | END 2020-08-10 23:10 | disposition home or self-care (01) | LOC: WOUND 00:54 | DX: L89.892 Pressure ulcer of other site, stage 2 (principal); M86.9 Osteomyelitis, unspecified; G82.21 Paraplegia, complete; I10 Essential (primary) hypertension; G82.20 Paraplegia, unspecified; Z87.891 Personal history of nicotine dependence ==

== ENCOUNTER 2020-08-17 00:37 | Day surgery (SDC) | payer OTHER, MEDICARE, BC | END 2020-08-17 22:45 | disposition home or self-care (01) | LOC: WOUND 00:37 | DX: L89.892 Pressure ulcer of other site, stage 2 (principal); M86.9 Osteomyelitis, unspecified; G82.21 Paraplegia, complete; N31.9 Neuromuscular dysfunction of bladder, unspecified; M15.9 Polyosteoarthritis, unspecified; M10.9 Gout, unspecified; K21.9 Gastro-esophageal reflux disease without esophagitis; E55.9 Vitamin D deficiency, unspecified; I10 Essential (primary) hypertension; Z86.711 Personal history of pulmonary embolism; Z87.891 Personal history of nicotine dependence; Z88.1 Allergy status to other antibiotic agents; Z88.0 Allergy status to penicillin; Z88.2 Allergy status to sulfonamides ==

== ENCOUNTER 2020-08-24 02:09 | Day surgery (SDC) | payer OTHER, MEDICARE, BC | END 2020-08-24 22:50 | disposition home or self-care (01) | LOC: WOUND 02:09 | DX: L89.892 Pressure ulcer of other site, stage 2 (principal); L97.512 Non-pressure chronic ulcer of other part of right foot with fat layer exposed; L97.522 Non-pressure chronic ulcer of other part of left foot with fat layer exposed; M86.9 Osteomyelitis, unspecified; G82.21 Paraplegia, complete; K21.9 Gastro-esophageal reflux disease without esophagitis; I10 Essential (primary) hypertension; Z87.891 Personal history of nicotine dependence | CPT/HCPCS: 36415; 85651; 86140 ==

== ENCOUNTER 2020-08-31 00:34 | Day surgery (SDC) | payer OTHER, MEDICARE, BC | END 2020-08-31 22:53 | disposition home or self-care (01) | LOC: WOUND 00:34 | DX: L89.892 Pressure ulcer of other site, stage 2 (principal); L98.8 Other specified disorders of the skin and subcutaneous tissue; M86.9 Osteomyelitis, unspecified; G82.21 Paraplegia, complete; R25.2 Cramp and spasm; N31.9 Neuromuscular dysfunction of bladder, unspecified; M15.9 Polyosteoarthritis, unspecified; M10.9 Gout, unspecified; K21.9 Gastro-esophageal reflux disease without esophagitis; E55.9 Vitamin D deficiency, unspecified; E53.8 Deficiency of other specified B group vitamins; I10 Essential (primary) hypertension; Z86.711 Personal history of pulmonary embolism; Z87.891 Personal history of nicotine dependence | CPT/HCPCS: G0463 ==

== ENCOUNTER 2020-09-14 00:54 | Day surgery (SDC) | payer OTHER, MEDICARE, BC ==
[2020-09-14] MEDS ORDERED: ZINC15 PO (12:19)
[2020-09-14] MEDS ORDERED: HYDCHL25 PO (12:20)
== END 2020-09-14 23:13 | disposition home or self-care (01) ==
LOC: WOUND
DX: Z09 Encounter for follow-up examination after completed treatment for conditions other than malignant neoplasm (principal); M86.9 Osteomyelitis, unspecified; G82.20 Paraplegia, unspecified; N31.9 Neuromuscular dysfunction of bladder, unspecified; E53.8 Deficiency of other specified B group vitamins; K21.9 Gastro-esophageal reflux disease without esophagitis; E55.9 Vitamin D deficiency, unspecified; I10 Essential (primary) hypertension; M10.9 Gout, unspecified; Z87.2 Personal history of diseases of the skin and subcutaneous tissue; Z86.711 Personal history of pulmonary embolism; Z87.891 Personal history of nicotine dependence
CPT/HCPCS: G0463

== ENCOUNTER 2020-09-17 08:37 | Day surgery (SDC) | payer MEDICARE, BC ==
[~2020-09-17] VITALS: Ht 167.6 cm; Wt 79.5 kg
[~2020-09-17 08:37] MED LIST changes: +HYDCHL25 PO; +ZINC15 PO
--- NOTE | 2020-09-17 09:54 | NUR ---
History, Chart, Medications and Allergies reviewed before start of procedure.Patient confirms NPO status and agrees with scheduled surgery. Pre-Op teaching done. Pt verbalizes understanding. Patient States Post-Procedure ride home has been arranged.
--- NOTE | 2020-09-17 10:20 | NUR ---
09/17/20 1020 Sanjuana Abraham History, Chart, Medications and Allergies reviewed before start of procedure.PATIENT DETERMINED TO BE ASA APPROPRIATE FOR PROPOFOL SEDATION PRIOR TO START OF PROCEDURE BY .MONITOR INTACT WITH CONTINUOUS PULSE OXIMETRY AND INTERMITTENT BP.3-LEAD EKG REVIEWED WITH PHYSICIAN PRIOR TO START OF PROCEDURE.O2 VIA N/C INTACT THROUGHOUT SEDATION/PROCEDURE.
--- NOTE | 2020-09-17 11:09 | NUR ---
Discharge instructions reviewed with patient. Patient verbalizes understanding. Copy given to patient to take home. Discharged via wheelchair to private car for ride home.
== END 2020-09-17 11:11 | disposition home or self-care (01) ==
LOC: ORSCMMR 08:37 → ORD 10:00 → ORSCMMR 11:11
PROVIDERS: Internal Medicine Gastroenterology
PROC: 0DJD8ZZ Inspection of Lower Intestinal Tract, Via Natural or Artificial Opening Endoscopic (ICD-10-PCS; principal; 2020-09-17 10:00)
DX: Z12.11 Encounter for screening for malignant neoplasm of colon (principal); Z86.010 Personal history of colon polyps; K64.4 Residual hemorrhoidal skin tags; I10 Essential (primary) hypertension; A63.0 Anogenital (venereal) warts; K21.9 Gastro-esophageal reflux disease without esophagitis; F32.9 Major depressive disorder, single episode, unspecified; Z79.82 Long term (current) use of aspirin; Z79.899 Other long term (current) drug therapy
CPT/HCPCS: J2704; J7120

== ENCOUNTER → 2021-03-08 | Outpatient (CLI) | payer OTHER, MEDICARE, BC ==
[2021-03-08 17:03] LABS: Source, Urine Clean Catch
[2021-03-08 17:25] LABS: Appearance, Urine Cloudy (Clear); Bilirubin, Urine Neg (Neg); Blood, Urine 4+ (Neg); Glucose Qualitative, Urine Neg (Neg); Ketones, Urine 1+ (Neg); Leukocyte Esterase, Urine 2+ (Neg); Nitrite, Urine Pos (Neg); Protein, Urine 2+ (Neg); Urobilinogen, Urine 3+ (Normal)
[2021-03-08 17:49] LABS: Color, Urine Brown (P-Yellow)
[2021-03-08 17:51] LABS: Bacteria Many /hpf; Squamous Epithelial Cells Many /hpf (Few); White Blood Cells, Urine 25-50 /hpf (0-5)
== END | disposition home or self-care (01) ==
LOC: LAB SHORT 16:43 → LAB FUT 12-31 15:00
PROVIDERS: Physician Assistant
DX: N39.0 Urinary tract infection, site not specified (principal)
CPT/HCPCS: 81001; 87077; 87086; 87186

== ENCOUNTER 2021-07-08 02:45 | Day surgery (SDC) | payer MEDICARE, BC | END 2021-07-08 12:00 | disposition home or self-care (01) | LOC: WOUND 02:45 | DX: L89.323 Pressure ulcer of left buttock, stage 3 (principal); G82.20 Paraplegia, unspecified; N31.9 Neuromuscular dysfunction of bladder, unspecified; K21.9 Gastro-esophageal reflux disease without esophagitis; I10 Essential (primary) hypertension; Z87.891 Personal history of nicotine dependence | CPT/HCPCS: G0463 ==

== ENCOUNTER 2021-07-22 01:39 | Day surgery (SDC) | payer OTHER, MEDICARE, BC | END 2021-07-22 23:42 | disposition home or self-care (01) | LOC: WOUND 01:39 | DX: L89.153 Pressure ulcer of sacral region, stage 3 (principal); L89.323 Pressure ulcer of left buttock, stage 3; I10 Essential (primary) hypertension; G82.20 Paraplegia, unspecified; Z87.891 Personal history of nicotine dependence | CPT/HCPCS: G0463 ==

== ENCOUNTER 2021-08-05 05:53 | Day surgery (SDC) | payer OTHER, MEDICARE, BC | END 2021-08-05 23:34 | disposition home or self-care (01) | LOC: WOUND 05:53 | DX: L89.323 Pressure ulcer of left buttock, stage 3 (principal); L89.153 Pressure ulcer of sacral region, stage 3; G82.20 Paraplegia, unspecified; N31.9 Neuromuscular dysfunction of bladder, unspecified; K21.9 Gastro-esophageal reflux disease without esophagitis; I10 Essential (primary) hypertension; Z87.891 Personal history of nicotine dependence ==

== ENCOUNTER 2021-08-19 01:26 | Day surgery (SDC) | payer OTHER, MEDICARE, BC | END 2021-08-19 23:44 | disposition home or self-care (01) | LOC: WOUND 01:26 | DX: L89.323 Pressure ulcer of left buttock, stage 3 (principal); L89.153 Pressure ulcer of sacral region, stage 3; G82.20 Paraplegia, unspecified; N31.9 Neuromuscular dysfunction of bladder, unspecified; I10 Essential (primary) hypertension; Z87.891 Personal history of nicotine dependence | CPT/HCPCS: G0463 ==

== ENCOUNTER 2021-09-09 08:00 | Day surgery (SDC) | payer OTHER, MEDICARE, BC | END 2021-09-09 23:59 | disposition home or self-care (01) | LOC: WOUND 08:00 | DX: L89.323 Pressure ulcer of left buttock, stage 3 (principal); L89.153 Pressure ulcer of sacral region, stage 3; G82.20 Paraplegia, unspecified; N31.9 Neuromuscular dysfunction of bladder, unspecified; I10 Essential (primary) hypertension; Z87.891 Personal history of nicotine dependence | CPT/HCPCS: G0463 ==

== ENCOUNTER 2021-09-23 01:14 | Day surgery (SDC) | payer OTHER, MEDICARE, BC | END 2021-09-23 23:10 | disposition home or self-care (01) | LOC: WOUND 01:14 | DX: L89.323 Pressure ulcer of left buttock, stage 3 (principal); L89.153 Pressure ulcer of sacral region, stage 3; G82.20 Paraplegia, unspecified; N31.9 Neuromuscular dysfunction of bladder, unspecified; K21.9 Gastro-esophageal reflux disease without esophagitis; I10 Essential (primary) hypertension; Z87.891 Personal history of nicotine dependence | CPT/HCPCS: A9270; G0463 ==

== ENCOUNTER 2021-10-07 01:07 | Day surgery (SDC) | payer OTHER, MEDICARE, BC | END 2021-10-07 23:31 | disposition home or self-care (01) | LOC: WOUND 01:07 | DX: L89.323 Pressure ulcer of left buttock, stage 3 (principal); L89.153 Pressure ulcer of sacral region, stage 3; L89.159 Pressure ulcer of sacral region, unspecified stage; K21.9 Gastro-esophageal reflux disease without esophagitis; I10 Essential (primary) hypertension | CPT/HCPCS: G0463 ==

== ENCOUNTER 2021-10-21 03:16 | Day surgery (SDC) | payer OTHER, MEDICARE, BC | END 2021-10-21 23:21 | disposition home or self-care (01) | LOC: WOUND 03:16 | DX: L89.323 Pressure ulcer of left buttock, stage 3 (principal); L89.153 Pressure ulcer of sacral region, stage 3; L89.159 Pressure ulcer of sacral region, unspecified stage; K21.9 Gastro-esophageal reflux disease without esophagitis; I10 Essential (primary) hypertension; G82.20 Paraplegia, unspecified; N31.9 Neuromuscular dysfunction of bladder, unspecified; Z87.891 Personal history of nicotine dependence; Z86.711 Personal history of pulmonary embolism | CPT/HCPCS: A9270; G0463 ==

== ENCOUNTER 2021-11-11 00:46 | Day surgery (SDC) | payer OTHER, MEDICARE, BC | END 2021-11-11 23:56 | disposition home or self-care (01) | LOC: WOUND 00:46 | DX: L89.323 Pressure ulcer of left buttock, stage 3 (principal); L89.159 Pressure ulcer of sacral region, unspecified stage; L89.153 Pressure ulcer of sacral region, stage 3; I10 Essential (primary) hypertension; K21.9 Gastro-esophageal reflux disease without esophagitis; Z87.891 Personal history of nicotine dependence; G82.20 Paraplegia, unspecified | CPT/HCPCS: G0463 ==

== ENCOUNTER 2021-11-25 02:41 | Day surgery (SDC) | payer OTHER, MEDICARE, BC | END 2021-11-25 23:34 | disposition home or self-care (01) | LOC: WOUND 02:41 | DX: L89.323 Pressure ulcer of left buttock, stage 3 (principal); G82.20 Paraplegia, unspecified; I10 Essential (primary) hypertension; M10.9 Gout, unspecified; L89.153 Pressure ulcer of sacral region, stage 3 | CPT/HCPCS: A9270; G0463 ==

== ENCOUNTER 2021-12-09 00:37 | Day surgery (SDC) | payer OTHER, MEDICARE, BC | END 2021-12-09 23:55 | disposition home or self-care (01) | LOC: WOUND 00:37 | DX: L89.323 Pressure ulcer of left buttock, stage 3 (principal); L89.153 Pressure ulcer of sacral region, stage 3; G82.20 Paraplegia, unspecified; K21.9 Gastro-esophageal reflux disease without esophagitis; I10 Essential (primary) hypertension; M19.90 Unspecified osteoarthritis, unspecified site; Z87.891 Personal history of nicotine dependence | CPT/HCPCS: G0463 ==

== ENCOUNTER 2021-12-23 05:36 | Day surgery (SDC) | payer OTHER, MEDICARE, BC | END 2021-12-23 23:32 | disposition home or self-care (01) | LOC: WOUND 05:36 | DX: L89.323 Pressure ulcer of left buttock, stage 3 (principal); L89.153 Pressure ulcer of sacral region, stage 3; K21.9 Gastro-esophageal reflux disease without esophagitis; S90.414A Abrasion, right lesser toe(s), initial encounter; X58.XXXA Exposure to other specified factors, initial encounter; I10 Essential (primary) hypertension; Z87.891 Personal history of nicotine dependence | CPT/HCPCS: G0463 ==

== ENCOUNTER 2022-01-06 01:36 | Day surgery (SDC) | payer OTHER, MEDICARE, BC | END 2022-01-06 23:55 | disposition home or self-care (01) | LOC: WOUND 01:36 | DX: L89.323 Pressure ulcer of left buttock, stage 3 (principal); L89.153 Pressure ulcer of sacral region, stage 3; K21.9 Gastro-esophageal reflux disease without esophagitis; E55.9 Vitamin D deficiency, unspecified; S90.414A Abrasion, right lesser toe(s), initial encounter; X58.XXXA Exposure to other specified factors, initial encounter; I10 Essential (primary) hypertension; M19.90 Unspecified osteoarthritis, unspecified site; Z87.891 Personal history of nicotine dependence | CPT/HCPCS: G0463 ==

== ENCOUNTER 2022-01-20 00:29 | Day surgery (SDC) | payer OTHER, MEDICARE, BC | END 2022-01-21 00:54 | disposition home or self-care (01) | LOC: WOUND 00:29 | DX: L89.893 Pressure ulcer of other site, stage 3 (principal); S91.104D Unspecified open wound of right lesser toe(s) without damage to nail, subsequent encounter; I10 Essential (primary) hypertension; Z87.891 Personal history of nicotine dependence | CPT/HCPCS: A9270 ==

== ENCOUNTER → 2022-01-23 | Outpatient (CLI) | payer OTHER, MEDICARE, BC ==
[2022-01-23 13:04] LABS: Source, Urine Straight Cath
[2022-01-23 15:45] LABS: Appearance, Urine Cloudy (Clear); Blood, Urine 5+ (Neg); Color, Urine Amber (P-Yellow); Glucose Qualitative, Urine Neg (Neg); Ketones, Urine 1+ (Neg); Leukocyte Esterase, Urine 2+ (Neg); Nitrite, Urine Neg (Neg); Protein, Urine 2+ (Neg); Urobilinogen, Urine 3+ (Normal)
[2022-01-23 16:07] LABS: Bacteria Many /hpf; Bilirubin, Urine 1+ (Neg); Squamous Epithelial Cells Many /hpf (Few)
[2022-01-23 16:10] LABS: Amorphous Mod (0-Heavy); Hyaline Casts 0-2 /lpf (0-2); White Blood Cells, Urine 25-50 /hpf (0-5)
== END | disposition home or self-care (01) ==
LOC: LAB SHORT 13:02 → EDSTATUS 11-20 15:25 → LAB FUT 11-20 15:25
PROVIDERS: Urology
DX: N39.0 Urinary tract infection, site not specified (principal)
CPT/HCPCS: 81001; 87077; 87086; 87186

== ENCOUNTER 2022-01-27 01:26 | Day surgery (SDC) | payer OTHER, MEDICARE, BC | END 2022-01-27 23:24 | disposition home or self-care (01) | LOC: WOUND 01:26 | DX: L89.323 Pressure ulcer of left buttock, stage 3 (principal); S90.414A Abrasion, right lesser toe(s), initial encounter; L97.512 Non-pressure chronic ulcer of other part of right foot with fat layer exposed; I10 Essential (primary) hypertension; X58.XXXA Exposure to other specified factors, initial encounter; Z87.891 Personal history of nicotine dependence ==

== ENCOUNTER 2022-02-05 06:33 | Day surgery (SDC) | payer OTHER, MEDICARE, BC | END 2022-02-05 23:39 | disposition home or self-care (01) | LOC: WOUND 06:33 | DX: L89.324 Pressure ulcer of left buttock, stage 4 (principal); L97.512 Non-pressure chronic ulcer of other part of right foot with fat layer exposed; I10 Essential (primary) hypertension; K21.9 Gastro-esophageal reflux disease without esophagitis; Z87.891 Personal history of nicotine dependence | CPT/HCPCS: G0463 ==

== ENCOUNTER 2022-02-12 07:44 | Day surgery (SDC) | payer OTHER, MEDICARE, BC | END 2022-02-12 23:45 | disposition home or self-care (01) | LOC: WOUND 07:44 | DX: L89.324 Pressure ulcer of left buttock, stage 4 (principal); L97.512 Non-pressure chronic ulcer of other part of right foot with fat layer exposed; I10 Essential (primary) hypertension; K21.9 Gastro-esophageal reflux disease without esophagitis; M10.9 Gout, unspecified; Z87.891 Personal history of nicotine dependence | CPT/HCPCS: G0463 ==

== ENCOUNTER 2022-02-28 15:04 | Observation (INO) | payer OTHER, MEDICARE, BC ==
[~2022-02-28] VITALS: Ht 167.6 cm; Wt 72.6 kg
[~2022-02-28 15:04] MED LIST changes: +Vitamin D1000 UNI1 PO; -Vitamin D400 UNI2 PO
[2022-02-28 16:08] LABS: BASOPHILS ABSOLUTE AUTO 0.03 K/mm3 (0.00-0.23); BASOPHILS PERCENT AUTO 0 % (0-2); EOSINOPHILS ABSOLUTE AUTO 0.06 K/mm3 (0.00-0.68); EOSINOPHILS PERCENT AUTO 1 % (0-6); Hematocrit 31.2 % (37.0-53.0); Hemoglobin 10.4 g/dL (13.5-17.5); IMMATURE GRAN ABSOLUTE AUTO 0.14 K/mm3 (0.00-0.10); IMMATURE GRAN PERCENT AUTO 1 % (0-1); LYMPHOCYTES PERCENT AUTO 13 % (21-46); MONOCYTES ABSOLUTE AUTO 1.39 K/mm3 (0.16-1.47); MONOCYTES PERCENT AUTO 12 % (4-13); Mean Corpuscular HGB 32.1 pg (26.0-34.0); Mean Corpuscular HGB Conc 33.3 g/dL (31.5-36.5); Mean Corpuscular Volume 96 fL (80-100); Mean Platelet Volume 10.2 fL (9.1-12.4); NEUTROPHILS PERCENT AUTO 73 % (41-73); Platelet Count 300 K/mm3 (150-400); RDW Coefficient Variation 14.6 % (11.7-14.2); RDW Standard Deviation 51.6 fL (35.1-46.3); Red Blood Cell Count 3.24 M/mm3 (4.30-5.90); White Blood Cell Count 12.02 K/mm3 (4.00-11.30)
[2022-02-28 16:31] LABS: Albumin, Blood 2.4 g/dL (3.4-5.0); Albumin/Globulin Ratio 0.8 (0.8-1.8); Bilirubin, Total 0.5 mg/dL (0.1-1.0); Bun/Creatinine Ratio 19.1 (12.0-20.0); Creatinine, Blood 1.1 mg/dL (0.60-1.20); Magnesium, Blood 1.7 mg/dL (1.6-2.4); Potassium, Blood 3.3 mmol/L (3.5-5.5); Total Protein, Blood 5.4 g/dL (6.4-8.2)
[2022-02-28 16:40] LABS: Influenza A, PCR NEGATIVE (NEGATIVE); Influenza B, PCR NEGATIVE (NEGATIVE); Resp Syncytial Virus, PCR NEGATIVE (NEGATIVE); SARS-Cov-2 (COVID-19) PCR, MMC NEGATIVE (NEGATIVE)
[2022-02-28 19:50] LABS: Source, Urine Straight Cath
[2022-02-28 20:03] LABS: Bilirubin, Urine Neg (Neg); Blood, Urine 3+ (Neg); Glucose Qualitative, Urine Neg (Neg); Ketones, Urine 1+ (Neg); Leukocyte Esterase, Urine 3+ (Neg); Nitrite, Urine Neg (Neg); Protein, Urine 1+ (Neg); Urobilinogen, Urine NORM (Normal)
[2022-02-28 20:37] LABS: Amorphous Light (0-Heavy); Appearance, Urine Hazy (Clear); Bacteria Many /hpf; Color, Urine Yellow (P-Yellow); Red Blood Cells, Urine 0-2 /hpf (0-2); Squamous Epithelial Cells Mod /hpf (Few); Transitional Epithelial Cells Few /hpf (0-Rare)
[2022-03-01] MEDS ORDERED: PROBIOTIC1 EA13 PO (00:38)
[2022-03-01 04:53] LABS: BASOPHILS ABSOLUTE AUTO 0.02 K/mm3 (0.00-0.23); BASOPHILS PERCENT AUTO 0 % (0-2); EOSINOPHILS ABSOLUTE AUTO 0.08 K/mm3 (0.00-0.68); EOSINOPHILS PERCENT AUTO 1 % (0-6); Hematocrit 29.1 % (37.0-53.0); Hemoglobin 9.6 g/dL (13.5-17.5); IMMATURE GRAN ABSOLUTE AUTO 0.06 K/mm3 (0.00-0.10); IMMATURE GRAN PERCENT AUTO 1 % (0-1); LYMPHOCYTES ABSOLUTE AUTO 1.61 K/mm3 (0.84-5.20); LYMPHOCYTES PERCENT AUTO 16 % (21-46); MONOCYTES ABSOLUTE AUTO 1.18 K/mm3 (0.16-1.47); MONOCYTES PERCENT AUTO 12 % (4-13); Mean Corpuscular HGB 31.7 pg (26.0-34.0); Mean Corpuscular Volume 96 fL (80-100); Mean Platelet Volume 10.6 fL (9.1-12.4); NEUTROPHILS ABSOLUTE AUTO 7.01 K/mm3 (1.96-9.15); NEUTROPHILS PERCENT AUTO 70 % (41-73); Platelet Count 286 K/mm3 (150-400); RDW Coefficient Variation 14.6 % (11.7-14.2); RDW Standard Deviation 50.9 fL (35.1-46.3); Red Blood Cell Count 3.03 M/mm3 (4.30-5.90); White Blood Cell Count 9.96 K/mm3 (4.00-11.30)
--- NOTE | 2022-03-01 04:58 | NUR ---
SHIFT SUMMARY: PT IS ALERT AND ORIENTED. PT IS CALM AND COOPERATIVE WITH CARE. PT CALLS APPROPRIATELY. PT IS W/C AT BASELINE R/T SPINAL CORD INJURY. LEG IMMOBILIZER IN PLACE ON R. LEG R/T TIBIAL FX. 2 DECUBITUS ULCERS ON BUTTOCKS PHOTOGRAPHED AND DRESSED. LEBLANC PATENT AND DRAINING YELLOW URINE. PT DENIES PAIN, NAUSEA, VOMITING, AND SOB. BED IN LOW POSITION, CALL LIGHT WITHIN REACH. WILL REPORT TO DAY NURSE AND CONTINUE TO MONITOR.
[2022-03-01 05:18] LABS: Albumin, Blood 2.2 g/dL (3.4-5.0); Albumin/Globulin Ratio 0.7 (0.8-1.8); Bilirubin, Total 0.4 mg/dL (0.1-1.0); Bun/Creatinine Ratio 23.4 (12.0-20.0); Calcium, Blood 7.6 mg/dL (8.5-10.1); Creatinine, Blood 0.77 mg/dL (0.60-1.20); Globulin, Blood 3.2 g/dL (2.2-4.0); Potassium, Blood 3.4 mmol/L (3.5-5.5); Total Protein, Blood 5.4 g/dL (6.4-8.2)
--- NOTE | 2022-03-01 18:28 | NUR ---
SHIFT SUMMARY PT A&O X 4. VSS. MEDICATED FOR NAUSEA ONCE THIS SHIFT. F/C INTACT & PATENT DRAINING DARK YELLOW URINE. COCCYX AND GLUTEAL WOUNDS REDRESSED. PLACED CALCIUM ALGINATE IN WOUND BEDS AND COVERED WITH CLOVER LEAF MEPIPLEXES. PT HAD LARGE LOOSE BM TODAY. IV IN L AC DC'D, PT C/O PAIN & TENDERNESS AT SITE. LEG IMMOBILIZER REMAINS ON R LEG. PT COOPERATIVE & PLEASANT WITH ALL CARE, CALL LIGHT WITHIN REACH & USES APPROPRIATELY.
[2022-03-02 05:08] LABS: BASOPHILS ABSOLUTE AUTO 0.02 K/mm3 (0.00-0.23); BASOPHILS PERCENT AUTO 0 % (0-2); EOSINOPHILS ABSOLUTE AUTO 0.13 K/mm3 (0.00-0.68); EOSINOPHILS PERCENT AUTO 2 % (0-6); Hematocrit 28.6 % (37.0-53.0); Hemoglobin 9.4 g/dL (13.5-17.5); IMMATURE GRAN ABSOLUTE AUTO 0.05 K/mm3 (0.00-0.10); IMMATURE GRAN PERCENT AUTO 1 % (0-1); LYMPHOCYTES ABSOLUTE AUTO 1.85 K/mm3 (0.84-5.20); LYMPHOCYTES PERCENT AUTO 23 % (21-46); MONOCYTES PERCENT AUTO 14 % (4-13); Mean Corpuscular HGB 31.8 pg (26.0-34.0); Mean Corpuscular HGB Conc 32.9 g/dL (31.5-36.5); Mean Corpuscular Volume 97 fL (80-100); Mean Platelet Volume 10.3 fL (9.1-12.4); NEUTROPHILS PERCENT AUTO 60 % (41-73); Platelet Count 271 K/mm3 (150-400); RDW Coefficient Variation 14.5 % (11.7-14.2); RDW Standard Deviation 51.8 fL (35.1-46.3); Red Blood Cell Count 2.96 M/mm3 (4.30-5.90); White Blood Cell Count 7.95 K/mm3 (4.00-11.30)
[2022-03-02 05:23] LABS: Albumin/Globulin Ratio 0.6 (0.8-1.8); Bilirubin, Total 0.4 mg/dL (0.1-1.0); Calcium, Blood 7.6 mg/dL (8.5-10.1); Creatinine, Blood 0.67 mg/dL (0.60-1.20); Globulin, Blood 3.1 g/dL (2.2-4.0); Potassium, Blood 3.4 mmol/L (3.5-5.5); Total Protein, Blood 5.1 g/dL (6.4-8.2)
--- NOTE | 2022-03-02 06:20 | NUR ---
Samreen ferris: Patient is a delightful man who is here for fx of rt tibia. Pt Rt leg is in an immobilizer. He denies any pain. Pt has a oliveira cath draining yellow urine. Patient had a new IV started Rt AC. Pt had some nausia/cough with white phlem at the beginning of shift. Has done better with that and has not needed an antiametic. Pt has rested well after MN. Tele shows SR rate in the 80's. Call light in reach, able to make needs known.
--- NOTE | 2022-03-02 18:24 | NUR ---
SHIFT SUMMARY PT A&O X 4. VSS. PT REQUIRED ANTI NAUSEA MEDICATION TWICE THIS SHIFT. ORTHO MD IN TO SEE PT TODAY. R LEG IMMOBILIZER REMOVED FOR MD TO EXAMINE LEG. MD STATES NO INTERVENTION IS NEEDED THOUGH MD REQUESTS PT FOLLOW UP IN ORTHO CLINIC 1 WEEK AFTER DC. IMMOBILIZER REPLACED TO R LEG.
--- NOTE | 2022-03-03 04:46 | NUR ---
Rn summary: Patient is alert and oriented x4. Patient has slept well most of shift. Patient drsgs to coccyx and buttocks were changed, wound cleaned and calcium alginate applied to wound bed with mepilex. Pt had small loose stool. Pt has a oliveira cath with good urine output. Patient needs to be assisted/reminded to reposition self. Rt foot is more swollen. Leg imobilizer in place. Call light in reach. Assessment stable. Less nausea this morning.
[2022-03-03 05:20] LABS: BASOPHILS ABSOLUTE AUTO 0.01 K/mm3 (0.00-0.23); BASOPHILS PERCENT AUTO 0 % (0-2); EOSINOPHILS ABSOLUTE AUTO 0.27 K/mm3 (0.00-0.68); EOSINOPHILS PERCENT AUTO 4 % (0-6); Hematocrit 28.5 % (37.0-53.0); Hemoglobin 9.4 g/dL (13.5-17.5); IMMATURE GRAN ABSOLUTE AUTO 0.04 K/mm3 (0.00-0.10); IMMATURE GRAN PERCENT AUTO 1 % (0-1); LYMPHOCYTES ABSOLUTE AUTO 1.53 K/mm3 (0.84-5.20); LYMPHOCYTES PERCENT AUTO 25 % (21-46); MONOCYTES ABSOLUTE AUTO 0.98 K/mm3 (0.16-1.47); MONOCYTES PERCENT AUTO 16 % (4-13); Mean Corpuscular HGB 31.6 pg (26.0-34.0); Mean Corpuscular Volume 96 fL (80-100); NEUTROPHILS ABSOLUTE AUTO 3.33 K/mm3 (1.96-9.15); NEUTROPHILS PERCENT AUTO 54 % (41-73); Platelet Count 278 K/mm3 (150-400); RDW Coefficient Variation 14.2 % (11.7-14.2); RDW Standard Deviation 49.8 fL (35.1-46.3); Red Blood Cell Count 2.97 M/mm3 (4.30-5.90); White Blood Cell Count 6.16 K/mm3 (4.00-11.30)
[2022-03-03 05:50] LABS: Albumin, Blood 1.9 g/dL (3.4-5.0); Albumin/Globulin Ratio 0.6 (0.8-1.8); Bilirubin, Total 0.5 mg/dL (0.1-1.0); Bun/Creatinine Ratio 13.4 (12.0-20.0); Calcium, Blood 7.6 mg/dL (8.5-10.1); Creatinine, Blood 0.6 mg/dL (0.60-1.20); Globulin, Blood 3.3 g/dL (2.2-4.0); Potassium, Blood 3.3 mmol/L (3.5-5.5); Total Protein, Blood 5.2 g/dL (6.4-8.2)
--- NOTE | 2022-03-03 19:48 | NUR ---
SHIFT SUMMARY PLEASANT 72-YEAR-OLD, A&O X4. ORTHO CONSULT DONE, NON-OPERABLE. NEED ASSIST TO WC, STAND-BY ASSIST. R AC IV. TELE DC'D THIS SHIFT. PRESSURE INJURIES, DRESSED EARLY AM, CALCIUM ALGINATE AND FOAM COVER. LEBLANC IN PLACE, INCONTINENT OF BOWEL. PARAPLEGIA WITH SPASTICITY IN L KNEE. CONTINUE TO MONITOR.
--- NOTE | 2022-03-04 05:35 | NUR ---
Rn summary: Patient has rested well tonight. Souza draining dk yellow urine. Immobilizer remains in place. Pt has no c/o pain. Patient thinks he will be discharged today. PT did work with him yesterday, observing how he transferred from the bed to the chair. He states Sonny from PT was pleased with his ability. Pt does express concern if he has diarrhea or if he gets weak and can't transfer at home. Call light in reach.
[2022-03-04 05:44] LABS: BASOPHILS ABSOLUTE AUTO 0.01 K/mm3 (0.00-0.23); BASOPHILS PERCENT AUTO 0 % (0-2); EOSINOPHILS ABSOLUTE AUTO 0.28 K/mm3 (0.00-0.68); EOSINOPHILS PERCENT AUTO 4 % (0-6); Hematocrit 28.1 % (37.0-53.0); Hemoglobin 9.4 g/dL (13.5-17.5); IMMATURE GRAN ABSOLUTE AUTO 0.04 K/mm3 (0.00-0.10); IMMATURE GRAN PERCENT AUTO 1 % (0-1); LYMPHOCYTES ABSOLUTE AUTO 1.73 K/mm3 (0.84-5.20); LYMPHOCYTES PERCENT AUTO 26 % (21-46); MONOCYTES ABSOLUTE AUTO 1.03 K/mm3 (0.16-1.47); MONOCYTES PERCENT AUTO 16 % (4-13); Mean Corpuscular HGB 32.2 pg (26.0-34.0); Mean Corpuscular HGB Conc 33.5 g/dL (31.5-36.5); Mean Corpuscular Volume 96 fL (80-100); Mean Platelet Volume 10.2 fL (9.1-12.4); NEUTROPHILS ABSOLUTE AUTO 3.48 K/mm3 (1.96-9.15); NEUTROPHILS PERCENT AUTO 53 % (41-73); Platelet Count 294 K/mm3 (150-400); RDW Coefficient Variation 14.1 % (11.7-14.2); RDW Standard Deviation 49.8 fL (35.1-46.3); Red Blood Cell Count 2.92 M/mm3 (4.30-5.90); White Blood Cell Count 6.57 K/mm3 (4.00-11.30)
[2022-03-04 06:14] LABS: Albumin/Globulin Ratio 0.6 (0.8-1.8); Bilirubin, Total 0.4 mg/dL (0.1-1.0); Calcium, Blood 7.8 mg/dL (8.5-10.1); Creatinine, Blood 0.69 mg/dL (0.60-1.20); Globulin, Blood 3.2 g/dL (2.2-4.0); Potassium, Blood 3.7 mmol/L (3.5-5.5); Total Protein, Blood 5.2 g/dL (6.4-8.2)
--- NOTE | 2022-03-04 18:00 | NUR ---
SHIFT SUMMARY [facility] AND SPOKE AND PT WILL REMAIN ANOTHER DAY UNTIL A SAFE DISCHARGE IS PLANNED. PT HAS BEEN PAIN FREE AND DENYING SOB. HAVING SOME ISSUE WITH ACID REFLUX BEFORE AND AFTER EATING. THIS RN HAS BEEN PREMEDICATING MEALS WITH TUMS AND ZOFRAN ADDITIONALLY PER PTS DESCRITION AND EMAR ALLOWANCE. PT HAS BEEN TURNING HIMSELF IN BED. BED IN LOWEST POSITION AND CLAL LIGHT IN REACH
[2022-03-05 05:06] LABS: BASOPHILS ABSOLUTE AUTO 0.01 K/mm3 (0.00-0.23); BASOPHILS PERCENT AUTO 0 % (0-2); EOSINOPHILS ABSOLUTE AUTO 0.17 K/mm3 (0.00-0.68); EOSINOPHILS PERCENT AUTO 2 % (0-6); Hematocrit 27.9 % (37.0-53.0); Hemoglobin 9.3 g/dL (13.5-17.5); IMMATURE GRAN ABSOLUTE AUTO 0.04 K/mm3 (0.00-0.10); IMMATURE GRAN PERCENT AUTO 1 % (0-1); LYMPHOCYTES ABSOLUTE AUTO 1.65 K/mm3 (0.84-5.20); LYMPHOCYTES PERCENT AUTO 23 % (21-46); MONOCYTES ABSOLUTE AUTO 1.12 K/mm3 (0.16-1.47); MONOCYTES PERCENT AUTO 16 % (4-13); Mean Corpuscular HGB 31.8 pg (26.0-34.0); Mean Corpuscular HGB Conc 33.3 g/dL (31.5-36.5); Mean Corpuscular Volume 96 fL (80-100); Mean Platelet Volume 9.9 fL (9.1-12.4); NEUTROPHILS ABSOLUTE AUTO 4.08 K/mm3 (1.96-9.15); NEUTROPHILS PERCENT AUTO 58 % (41-73); Platelet Count 329 K/mm3 (150-400); RDW Standard Deviation 49.1 fL (35.1-46.3); Red Blood Cell Count 2.92 M/mm3 (4.30-5.90); White Blood Cell Count 7.07 K/mm3 (4.00-11.30)
--- NOTE | 2022-03-05 05:06 | NUR ---
SHIFT SUMMARY: PT IS ALERT AND ORIENTED. PT IS CALM AND COOPERATIVE WITH CARE. PT CALLS APPROPRIATELY. PT IS PARAPLEGIC, W/C BOUND AT BASELINE, NOT OUT OF BED OVERNIGHT. PT DENIES PAIN, NAUSEA, VOMITING, AND SOB. DRESSING ON GLUTEAL WOUND CHANGED DUE TO DISCHARGE CAUSING IT TO BE SOILED, DRESSING ON COCCYX WOUND C/D/I. PT SLEPT MUCH OF THE NIGHT WHEN NOT DISTURBED. AWAITING PLACEMENT VS HOME WITH CAREGIVERS. NO ACUTE CHANGES OR COMPLICATION. BED IN LOW POSITION, CALL LIGHT WITHIN REACH. WILL CONTINUE TO MONITOR.
[2022-03-05 05:26] LABS: Albumin/Globulin Ratio 0.6 (0.8-1.8); Bilirubin, Total 0.5 mg/dL (0.1-1.0); Bun/Creatinine Ratio 13.5 (12.0-20.0); Calcium, Blood 8.2 mg/dL (8.5-10.1); Creatinine, Blood 0.59 mg/dL (0.60-1.20); Globulin, Blood 3.4 g/dL (2.2-4.0); Potassium, Blood 3.6 mmol/L (3.5-5.5); Total Protein, Blood 5.4 g/dL (6.4-8.2)
--- NOTE | 2022-03-05 18:01 | NUR ---
SHIFT SUMMARY- PT IS A/O, PLESANT AND COOPERATIVE. HE WAS NAUSIOUS THIS MORNING GAVE PRN AND RESOLVED. PT ATE SOME THIS AFTERNOON AND TOLERATED WELL. HE WORKED WITH PT AND OT THIS SHIFT. PT REFUSED DRESSING CHANGE, REPORTED THAT HE WANTED TO WAIT UNTIL LATER IN CASE HE HAD A BM. HIS BED IS IN THE LOW POSITION AND CALL LIGHT IS WITIN REACH.
--- NOTE | 2022-03-06 05:20 | NUR ---
PATIENT SLEPT WELL AFTER LATE NIGHT DRESSING CHANGES. A&OX4. LOOKING FORWARD TO BEING DISCHARGED TO HOME TODAY. IF NO DISCHARGE TODAY, WOULD BENEFIT STAFF TO HAVE [facility] INSTRUCTIONS.
[2022-03-06 05:28] LABS: BASOPHILS ABSOLUTE AUTO 0.02 K/mm3 (0.00-0.23); BASOPHILS PERCENT AUTO 0 % (0-2); EOSINOPHILS PERCENT AUTO 3 % (0-6); Hemoglobin 9.2 g/dL (13.5-17.5); IMMATURE GRAN ABSOLUTE AUTO 0.05 K/mm3 (0.00-0.10); IMMATURE GRAN PERCENT AUTO 1 % (0-1); LYMPHOCYTES ABSOLUTE AUTO 1.47 K/mm3 (0.84-5.20); LYMPHOCYTES PERCENT AUTO 22 % (21-46); MONOCYTES ABSOLUTE AUTO 1.01 K/mm3 (0.16-1.47); MONOCYTES PERCENT AUTO 15 % (4-13); Mean Corpuscular HGB 31.4 pg (26.0-34.0); Mean Corpuscular HGB Conc 32.9 g/dL (31.5-36.5); Mean Corpuscular Volume 96 fL (80-100); Mean Platelet Volume 9.9 fL (9.1-12.4); NEUTROPHILS ABSOLUTE AUTO 3.92 K/mm3 (1.96-9.15); NEUTROPHILS PERCENT AUTO 59 % (41-73); Platelet Count 340 K/mm3 (150-400); RDW Coefficient Variation 14.1 % (11.7-14.2); RDW Standard Deviation 49.4 fL (35.1-46.3); Red Blood Cell Count 2.93 M/mm3 (4.30-5.90); White Blood Cell Count 6.67 K/mm3 (4.00-11.30)
[2022-03-06 05:44] LABS: Albumin/Globulin Ratio 0.6 (0.8-1.8); Bilirubin, Total 0.5 mg/dL (0.1-1.0); Bun/Creatinine Ratio 16.5 (12.0-20.0); Creatinine, Blood 0.55 mg/dL (0.60-1.20); Globulin, Blood 3.4 g/dL (2.2-4.0); Potassium, Blood 3.2 mmol/L (3.5-5.5); Total Protein, Blood 5.4 g/dL (6.4-8.2)
[2022-03-06] MEDS ORDERED: PANT40 PO (15:53)
[2022-03-06] MEDS ORDERED: Flonase 0.05% N16 GM (15:54)
[2022-03-06] MEDS ORDERED: MACRODANTIN100 M1 PO (15:55)
[2022-03-06] MEDS ORDERED: PROM12.5S PR (15:55)
--- NOTE | 2022-03-06 16:57 | NUR ---
DISCHARGE INSTRUCTIONS COMPLETED AND DISCUSSED WITH PT EXPRESSING UNDERSTANDING. SCRIPTS FAXED TO [employer]. DRESSINGS CHANGED TO COCCYX AND L GLUTEAL FOLD. YELLOW SLOUGH NOTED TO BOTH COCCYX AND FOLD WOUNDS. REDNESS NOTED AROUND COCCYX WOUND. NO ODORS NOTED. MEPILEX APPILED TO COCCYX AND CALCIUM ALGINATE WITH MEPILEX TO L GLUTEAL WOUND. TO [facility] VIA W/C WITH TRANSPORT ASSIST.
== END 2022-03-06 16:00 | disposition home health service (06) ==
LOC: ER 15:04 → MEDS 15:05 → ER 03-01 00:12 → MEDS 03-01 00:12 → ENPENDDIS 03-05 18:57 → MEDS 03-06 16:00
PROVIDERS: Emergency Medicine; Family Medicine; ADMIT Internal Medicine
DX: A41.9 Sepsis, unspecified organism (principal); S82.141A Displaced bicondylar fracture of right tibia, initial encounter for closed fracture; N39.0 Urinary tract infection, site not specified; W05.0XXA Fall from non-moving wheelchair, initial encounter; G82.20 Paraplegia, unspecified; B95.2 Enterococcus as the cause of diseases classified elsewhere; I10 Essential (primary) hypertension; K21.9 Gastro-esophageal reflux disease without esophagitis; F32.A Depression, unspecified; M10.9 Gout, unspecified; Z88.2 Allergy status to sulfonamides; Z88.0 Allergy status to penicillin; I95.9 Hypotension, unspecified; E87.6 Hypokalemia
CPT/HCPCS: 0241U; 29505; 36415; 51702; 71045; 73562-RT; 80053; 81001; 83605; 83735; 83880; 85025; 87077; 87086; 87186; 93005; 93010; 96361-59; 96372; 96374-59; 96375; 96375-59; 96376; 97110; 97110-CO; 97162; 97166; 97530; 97530-CO; 99285-25; A9270; G0378; J0692; J0696; J1650; J2405; J2550; J3480; J7030; J7050

== ENCOUNTER 2022-03-11 02:03 | Day surgery (SDC) | payer OTHER, MEDICARE, BC ==
[~2022-03-11 02:03] MED LIST changes: +Flonase 0.05% N16 GM; +MACRODANTIN100 M1 PO; +PANT40 PO; +PROBIOTIC1 EA13 PO; +PROM12.5S PR
== END 2022-03-11 22:47 | disposition home or self-care (01) ==
LOC: WOUND 02:03
DX: L89.324 Pressure ulcer of left buttock, stage 4 (principal); L89.153 Pressure ulcer of sacral region, stage 3; G82.21 Paraplegia, complete; D50.9 Iron deficiency anemia, unspecified
CPT/HCPCS: A9270; G0463

== ENCOUNTER 2022-03-17 02:46 | Day surgery (SDC) | payer OTHER, MEDICARE, BC | END 2022-03-17 23:29 | disposition home or self-care (01) | LOC: WOUND 02:46 | DX: L89.153 Pressure ulcer of sacral region, stage 3 (principal); L89.894 Pressure ulcer of other site, stage 4; G82.21 Paraplegia, complete; D50.9 Iron deficiency anemia, unspecified; I10 Essential (primary) hypertension; N31.8 Other neuromuscular dysfunction of bladder; Z87.891 Personal history of nicotine dependence ==

== ENCOUNTER 2022-03-26 02:14 | Day surgery (SDC) | payer OTHER, MEDICARE, BC | END 2022-03-26 22:55 | disposition home or self-care (01) | LOC: WOUND 02:14 | DX: L89.324 Pressure ulcer of left buttock, stage 4 (principal); L89.153 Pressure ulcer of sacral region, stage 3; D50.9 Iron deficiency anemia, unspecified; G82.21 Paraplegia, complete ==

== ENCOUNTER 2022-04-02 02:00 | Day surgery (SDC) | payer OTHER, MEDICARE, BC | END 2022-04-02 23:49 | disposition home or self-care (01) | LOC: WOUND | DX: L89.224 Pressure ulcer of left hip, stage 4 (principal); L89.153 Pressure ulcer of sacral region, stage 3; D50.9 Iron deficiency anemia, unspecified ==

== ENCOUNTER 2022-04-11 01:16 | Day surgery (SDC) | payer OTHER, MEDICARE, BC | END 2022-04-11 23:26 | disposition home or self-care (01) | LOC: WOUND 01:16 | DX: L89.153 Pressure ulcer of sacral region, stage 3 (principal); L89.224 Pressure ulcer of left hip, stage 4; D50.9 Iron deficiency anemia, unspecified; G82.20 Paraplegia, unspecified; R25.2 Cramp and spasm; M10.9 Gout, unspecified; M15.9 Polyosteoarthritis, unspecified; K21.9 Gastro-esophageal reflux disease without esophagitis; E55.9 Vitamin D deficiency, unspecified; I10 Essential (primary) hypertension; Z86.711 Personal history of pulmonary embolism; Z87.891 Personal history of nicotine dependence | CPT/HCPCS: G0463 ==

== ENCOUNTER 2022-04-16 02:25 | Day surgery (SDC) | payer OTHER, MEDICARE, BC | END 2022-04-16 23:41 | disposition home or self-care (01) | LOC: WOUND | DX: L89.153 Pressure ulcer of sacral region, stage 3 (principal); L89.224 Pressure ulcer of left hip, stage 4; D50.9 Iron deficiency anemia, unspecified; G82.20 Paraplegia, unspecified; N31.9 Neuromuscular dysfunction of bladder, unspecified; R25.2 Cramp and spasm; M15.9 Polyosteoarthritis, unspecified; M10.9 Gout, unspecified; K21.9 Gastro-esophageal reflux disease without esophagitis; I10 Essential (primary) hypertension; E55.9 Vitamin D deficiency, unspecified; Z86.711 Personal history of pulmonary embolism; Z87.891 Personal history of nicotine dependence ==

== ENCOUNTER 2022-04-23 02:01 | Day surgery (SDC) | payer OTHER, MEDICARE, BC | END 2022-04-23 23:16 | disposition home or self-care (01) | LOC: WOUND 02:01 | DX: L89.894 Pressure ulcer of other site, stage 4 (principal); L89.153 Pressure ulcer of sacral region, stage 3; D50.9 Iron deficiency anemia, unspecified; G82.20 Paraplegia, unspecified; I10 Essential (primary) hypertension; Z87.891 Personal history of nicotine dependence | CPT/HCPCS: G0463 ==

== ENCOUNTER 2022-04-30 02:43 | Day surgery (SDC) | payer OTHER, MEDICARE, BC | END 2022-04-30 23:07 | disposition home or self-care (01) | LOC: WOUND 02:43 | DX: L89.154 Pressure ulcer of sacral region, stage 4 (principal); K21.9 Gastro-esophageal reflux disease without esophagitis; I10 Essential (primary) hypertension; Z87.891 Personal history of nicotine dependence; F41.9 Anxiety disorder, unspecified; F32.9 Major depressive disorder, single episode, unspecified; D50.9 Iron deficiency anemia, unspecified | CPT/HCPCS: G0463 ==

== ENCOUNTER 2022-05-07 06:06 | Day surgery (SDC) | payer OTHER, MEDICARE, BC | END 2022-05-07 23:09 | disposition home or self-care (01) | LOC: WOUND 06:06 | DX: L89.153 Pressure ulcer of sacral region, stage 3 (principal); L89.894 Pressure ulcer of other site, stage 4; D50.9 Iron deficiency anemia, unspecified; I10 Essential (primary) hypertension; K21.9 Gastro-esophageal reflux disease without esophagitis; Z87.891 Personal history of nicotine dependence ==

== ENCOUNTER 2022-05-14 02:01 | Day surgery (SDC) | payer OTHER, MEDICARE, BC | END 2022-05-14 22:59 | disposition home or self-care (01) | LOC: WOUND 02:01 | DX: L89.154 Pressure ulcer of sacral region, stage 4 (principal); M10.9 Gout, unspecified; I10 Essential (primary) hypertension; F41.9 Anxiety disorder, unspecified; Z87.891 Personal history of nicotine dependence; K21.9 Gastro-esophageal reflux disease without esophagitis | CPT/HCPCS: G0463 ==

== ENCOUNTER 2022-05-21 01:11 | Day surgery (SDC) | payer OTHER, MEDICARE, BC | END 2022-05-22 00:05 | disposition home or self-care (01) | LOC: WOUND 01:11 | DX: L89.894 Pressure ulcer of other site, stage 4 (principal); L89.159 Pressure ulcer of sacral region, unspecified stage; D50.9 Iron deficiency anemia, unspecified | CPT/HCPCS: G0463 ==

== ENCOUNTER 2022-06-04 00:58 | Day surgery (SDC) | payer OTHER, MEDICARE, BC | END 2022-06-04 23:17 | disposition home or self-care (01) | LOC: WOUND 00:58 | DX: L89.154 Pressure ulcer of sacral region, stage 4 (principal); D50.9 Iron deficiency anemia, unspecified | CPT/HCPCS: G0463 ==

== ENCOUNTER 2022-06-11 04:11 | Day surgery (SDC) | payer OTHER, MEDICARE, BC | END 2022-06-11 23:21 | disposition home or self-care (01) | LOC: WOUND 04:11 | DX: L89.894 Pressure ulcer of other site, stage 4 (principal); L89.159 Pressure ulcer of sacral region, unspecified stage; D50.9 Iron deficiency anemia, unspecified; G82.20 Paraplegia, unspecified; N31.9 Neuromuscular dysfunction of bladder, unspecified; I10 Essential (primary) hypertension; Z87.891 Personal history of nicotine dependence | CPT/HCPCS: G0463 ==

== ENCOUNTER 2022-06-25 01:38 | Day surgery (SDC) | payer OTHER, MEDICARE, BC | END 2022-06-25 22:58 | disposition home or self-care (01) | LOC: WOUND 01:38 | DX: L89.894 Pressure ulcer of other site, stage 4 (principal); D50.9 Iron deficiency anemia, unspecified | CPT/HCPCS: G0463 ==

== ENCOUNTER 2022-07-02 00:33 | Day surgery (SDC) | payer MEDICARE, BC | END 2022-07-02 23:41 | disposition home or self-care (01) | LOC: WOUND 00:33 | DX: L89.324 Pressure ulcer of left buttock, stage 4 (principal); L89.159 Pressure ulcer of sacral region, unspecified stage; D50.9 Iron deficiency anemia, unspecified | CPT/HCPCS: G0463 ==

== ENCOUNTER → 2022-07-04 | Outpatient (CLI) | payer MEDICARE, BC ==
[2022-07-04 16:26] LABS: Bun/Creatinine Ratio 16.6 (12.0-20.0); Calcium, Blood 9.1 mg/dL (8.5-10.1); Creatinine, Blood 0.66 mg/dL (0.60-1.20); Potassium, Blood 3.9 mmol/L (3.5-5.5)
== END | disposition home or self-care (01) ==
LOC: LAB 12:07 → LAB SHORT 12:07
PROVIDERS: Internal Medicine
DX: L89.324 Pressure ulcer of left buttock, stage 4 (principal); I10 Essential (primary) hypertension; I73.9 Peripheral vascular disease, unspecified; M15.9 Polyosteoarthritis, unspecified; Z87.440 Personal history of urinary (tract) infections
CPT/HCPCS: 80048

== ENCOUNTER 2022-07-09 00:41 | Day surgery (SDC) | payer OTHER, MEDICARE, BC | END 2022-07-09 22:56 | disposition home or self-care (01) | LOC: WOUND 00:41 | DX: L89.894 Pressure ulcer of other site, stage 4 (principal); L89.159 Pressure ulcer of sacral region, unspecified stage; D50.9 Iron deficiency anemia, unspecified | CPT/HCPCS: G0463 ==

== ENCOUNTER 2022-07-16 08:00 | Day surgery (SDC) | payer OTHER, MEDICARE, BC | END 2022-07-16 23:59 | disposition home or self-care (01) | LOC: WOUND 08:00 | DX: L89.224 Pressure ulcer of left hip, stage 4 (principal); L89.894 Pressure ulcer of other site, stage 4; D50.9 Iron deficiency anemia, unspecified; L89.159 Pressure ulcer of sacral region, unspecified stage | CPT/HCPCS: G0463 ==

== ENCOUNTER 2022-07-23 00:35 | Day surgery (SDC) | payer OTHER, MEDICARE, BC | END 2022-07-23 23:34 | disposition home or self-care (01) | LOC: WOUND 00:35 | DX: L89.224 Pressure ulcer of left hip, stage 4 (principal); D50.9 Iron deficiency anemia, unspecified; Z87.891 Personal history of nicotine dependence | CPT/HCPCS: G0463 ==

== ENCOUNTER 2022-07-31 02:01 | Day surgery (SDC) | payer OTHER, MEDICARE, BC | END 2022-07-31 22:50 | disposition home or self-care (01) | LOC: WOUND 02:01 | DX: L89.224 Pressure ulcer of left hip, stage 4 (principal); D50.9 Iron deficiency anemia, unspecified; G82.20 Paraplegia, unspecified; K21.9 Gastro-esophageal reflux disease without esophagitis; Z87.891 Personal history of nicotine dependence; I10 Essential (primary) hypertension | CPT/HCPCS: G0463 ==

== ENCOUNTER 2022-08-06 02:56 | Day surgery (SDC) | payer OTHER, MEDICARE, BC | END 2022-08-06 23:24 | disposition home or self-care (01) | LOC: WOUND 02:56 | DX: L89.224 Pressure ulcer of left hip, stage 4 (principal); M10.9 Gout, unspecified; K21.9 Gastro-esophageal reflux disease without esophagitis; I10 Essential (primary) hypertension; Z87.891 Personal history of nicotine dependence; D50.9 Iron deficiency anemia, unspecified | CPT/HCPCS: G0463 ==

== ENCOUNTER 2022-08-13 01:58 | Day surgery (SDC) | payer OTHER, MEDICARE, BC | END 2022-08-13 22:42 | disposition home or self-care (01) | LOC: WOUND 01:58 | DX: L89.894 Pressure ulcer of other site, stage 4 (principal); L89.159 Pressure ulcer of sacral region, unspecified stage; D50.9 Iron deficiency anemia, unspecified; I10 Essential (primary) hypertension; Z87.891 Personal history of nicotine dependence | CPT/HCPCS: G0463 ==

== ENCOUNTER 2022-08-20 00:46 | Day surgery (SDC) | payer OTHER, MEDICARE, BC | END 2022-08-20 23:32 | disposition home or self-care (01) | LOC: WOUND 00:46 | DX: L89.224 Pressure ulcer of left hip, stage 4 (principal); L97.512 Non-pressure chronic ulcer of other part of right foot with fat layer exposed | CPT/HCPCS: G0463 ==

== ENCOUNTER 2022-08-27 03:38 | Day surgery (SDC) | payer OTHER, MEDICARE, BC | END 2022-08-27 23:02 | disposition home or self-care (01) | LOC: WOUND 03:38 | DX: D50.9 Iron deficiency anemia, unspecified (principal); L89.159 Pressure ulcer of sacral region, unspecified stage; L89.894 Pressure ulcer of other site, stage 4; S91.109D Unspecified open wound of unspecified toe(s) without damage to nail, subsequent encounter | CPT/HCPCS: G0463 ==

== ENCOUNTER 2022-09-03 02:27 | Day surgery (SDC) | payer OTHER, MEDICARE, BC | END 2022-09-03 23:06 | disposition home or self-care (01) | LOC: WOUND 02:27 | DX: L89.894 Pressure ulcer of other site, stage 4 (principal); L89.159 Pressure ulcer of sacral region, unspecified stage; D50.9 Iron deficiency anemia, unspecified; S91.109D Unspecified open wound of unspecified toe(s) without damage to nail, subsequent encounter; X58.XXXD Exposure to other specified factors, subsequent encounter; I10 Essential (primary) hypertension; Z87.891 Personal history of nicotine dependence | CPT/HCPCS: G0463 ==

== ENCOUNTER 2022-09-10 02:25 | Day surgery (SDC) | payer OTHER, MEDICARE, BC | END 2022-09-10 22:57 | disposition home or self-care (01) | LOC: WOUND 02:25 | DX: L89.224 Pressure ulcer of left hip, stage 4 (principal); L89.159 Pressure ulcer of sacral region, unspecified stage; M10.9 Gout, unspecified; I10 Essential (primary) hypertension; F41.9 Anxiety disorder, unspecified; F32.A Depression, unspecified; Z87.891 Personal history of nicotine dependence; D50.9 Iron deficiency anemia, unspecified; S91.109D Unspecified open wound of unspecified toe(s) without damage to nail, subsequent encounter | CPT/HCPCS: G0463 ==

== ENCOUNTER 2022-09-18 00:57 | Day surgery (SDC) | payer OTHER, MEDICARE, BC | END 2022-09-18 22:52 | disposition home or self-care (01) | LOC: WOUND 00:57 | DX: L89.324 Pressure ulcer of left buttock, stage 4 (principal); L89.152 Pressure ulcer of sacral region, stage 2; D50.9 Iron deficiency anemia, unspecified; K21.9 Gastro-esophageal reflux disease without esophagitis; I10 Essential (primary) hypertension; Z86.711 Personal history of pulmonary embolism; Z79.01 Long term (current) use of anticoagulants; Z87.891 Personal history of nicotine dependence | CPT/HCPCS: G0463 ==

== ENCOUNTER 2022-09-24 02:27 | Day surgery (SDC) | payer OTHER, MEDICARE, BC | END 2022-09-24 23:34 | disposition home or self-care (01) | LOC: WOUND 02:27 | DX: L89.324 Pressure ulcer of left buttock, stage 4 (principal); D50.9 Iron deficiency anemia, unspecified; K21.9 Gastro-esophageal reflux disease without esophagitis; I10 Essential (primary) hypertension; Z87.891 Personal history of nicotine dependence | CPT/HCPCS: G0463 ==

== ENCOUNTER 2022-10-01 03:18 | Day surgery (SDC) | payer OTHER, MEDICARE, BC | END 2022-10-01 22:49 | disposition home or self-care (01) | LOC: WOUND 03:18 | DX: L89.324 Pressure ulcer of left buttock, stage 4 (principal); L89.152 Pressure ulcer of sacral region, stage 2; D50.9 Iron deficiency anemia, unspecified; G82.20 Paraplegia, unspecified; K21.9 Gastro-esophageal reflux disease without esophagitis; I10 Essential (primary) hypertension; Z87.891 Personal history of nicotine dependence | CPT/HCPCS: G0463 ==

== ENCOUNTER 2022-10-08 05:34 | Day surgery (SDC) | payer OTHER, MEDICARE, BC | END 2022-10-08 23:10 | disposition home or self-care (01) | LOC: WOUND 05:34 | DX: L89.324 Pressure ulcer of left buttock, stage 4 (principal); L89.152 Pressure ulcer of sacral region, stage 2; D50.9 Iron deficiency anemia, unspecified; K21.9 Gastro-esophageal reflux disease without esophagitis; I10 Essential (primary) hypertension; Z87.891 Personal history of nicotine dependence; Z86.711 Personal history of pulmonary embolism | CPT/HCPCS: G0463 ==

== ENCOUNTER 2022-10-16 03:47 | Day surgery (SDC) | payer OTHER, MEDICARE, BC | END 2022-10-16 22:46 | disposition home or self-care (01) | LOC: WOUND 03:47 | DX: L89.324 Pressure ulcer of left buttock, stage 4 (principal); L89.152 Pressure ulcer of sacral region, stage 2; D50.9 Iron deficiency anemia, unspecified; G82.20 Paraplegia, unspecified; K21.9 Gastro-esophageal reflux disease without esophagitis; I10 Essential (primary) hypertension; Z87.891 Personal history of nicotine dependence; Z86.711 Personal history of pulmonary embolism | CPT/HCPCS: G0463 ==

== ENCOUNTER 2022-10-22 00:44 | Day surgery (SDC) | payer OTHER, MEDICARE, BC | END 2022-10-22 23:04 | disposition home or self-care (01) | LOC: WOUND 00:44 | DX: L89.324 Pressure ulcer of left buttock, stage 4 (principal); L89.152 Pressure ulcer of sacral region, stage 2; D50.9 Iron deficiency anemia, unspecified | CPT/HCPCS: G0463 ==

== ENCOUNTER 2022-10-31 04:08 | Day surgery (SDC) | payer OTHER, MEDICARE, BC | END 2022-11-03 23:21 | disposition home or self-care (01) | LOC: WOUND 04:08 | DX: L89.324 Pressure ulcer of left buttock, stage 4 (principal); L89.323 Pressure ulcer of left buttock, stage 3; L89.152 Pressure ulcer of sacral region, stage 2; D50.9 Iron deficiency anemia, unspecified | CPT/HCPCS: G0463 ==

== ENCOUNTER 2022-11-05 03:48 | Day surgery (SDC) | payer OTHER, MEDICARE, BC | END 2022-11-05 22:48 | disposition home or self-care (01) | LOC: WOUND 03:48 | DX: L89.224 Pressure ulcer of left hip, stage 4 (principal); L89.152 Pressure ulcer of sacral region, stage 2; G82.20 Paraplegia, unspecified; M10.9 Gout, unspecified; K21.9 Gastro-esophageal reflux disease without esophagitis; I10 Essential (primary) hypertension; Z87.891 Personal history of nicotine dependence; D50.9 Iron deficiency anemia, unspecified | CPT/HCPCS: G0463 ==

== ENCOUNTER → 2022-11-12 | Day surgery (SDC) | payer OTHER, MEDICARE, BC | LOC: WOUND 03:12 | DX: L89.224 Pressure ulcer of left hip, stage 4 (principal); L89.152 Pressure ulcer of sacral region, stage 2; L89.323 Pressure ulcer of left buttock, stage 3; D50.9 Iron deficiency anemia, unspecified; M10.9 Gout, unspecified; K21.9 Gastro-esophageal reflux disease without esophagitis; I10 Essential (primary) hypertension; Z87.891 Personal history of nicotine dependence; Z86.711 Personal history of pulmonary embolism; F41.9 Anxiety disorder, unspecified; F32.A Depression, unspecified | CPT/HCPCS: G0463 ==

== ENCOUNTER 2022-11-19 02:45 | Day surgery (SDC) | payer OTHER, MEDICARE, BC | END 2022-11-19 22:48 | disposition home or self-care (01) | LOC: WOUND 02:45 | DX: L89.324 Pressure ulcer of left buttock, stage 4 (principal); L89.152 Pressure ulcer of sacral region, stage 2; D50.9 Iron deficiency anemia, unspecified | CPT/HCPCS: G0463 ==

== ENCOUNTER 2022-12-03 04:41 | Day surgery (SDC) | payer OTHER, MEDICARE, BC | END 2022-12-03 22:53 | disposition home or self-care (01) | LOC: WOUND 04:41 | DX: L89.324 Pressure ulcer of left buttock, stage 4 (principal); D50.9 Iron deficiency anemia, unspecified; M10.9 Gout, unspecified; K21.9 Gastro-esophageal reflux disease without esophagitis; E55.9 Vitamin D deficiency, unspecified; I26.99 Other pulmonary embolism without acute cor pulmonale; I10 Essential (primary) hypertension; F41.9 Anxiety disorder, unspecified; F32.9 Major depressive disorder, single episode, unspecified; G82.21 Paraplegia, complete; L97.512 Non-pressure chronic ulcer of other part of right foot with fat layer exposed; S91.109D Unspecified open wound of unspecified toe(s) without damage to nail, subsequent encounter; Z87.891 Personal history of nicotine dependence | CPT/HCPCS: G0463 ==

== ENCOUNTER 2022-12-08 00:55 | Day surgery (SDC) | payer OTHER, MEDICARE, BC | END 2022-12-08 23:09 | disposition home or self-care (01) | LOC: WOUND 00:55 | DX: L89.224 Pressure ulcer of left hip, stage 4 (principal); D50.9 Iron deficiency anemia, unspecified; L89.323 Pressure ulcer of left buttock, stage 3; L89.152 Pressure ulcer of sacral region, stage 2; K21.9 Gastro-esophageal reflux disease without esophagitis; M10.9 Gout, unspecified; I10 Essential (primary) hypertension; Z87.891 Personal history of nicotine dependence | CPT/HCPCS: A9270; G0463 ==

== ENCOUNTER 2022-12-17 04:12 | Day surgery (SDC) | payer OTHER, MEDICARE, BC | END 2022-12-17 23:08 | disposition home or self-care (01) | LOC: WOUND 04:12 | DX: L89.224 Pressure ulcer of left hip, stage 4 (principal); M10.9 Gout, unspecified; K21.9 Gastro-esophageal reflux disease without esophagitis; Z87.891 Personal history of nicotine dependence; I10 Essential (primary) hypertension; D50.9 Iron deficiency anemia, unspecified; L89.323 Pressure ulcer of left buttock, stage 3; L89.152 Pressure ulcer of sacral region, stage 2 | CPT/HCPCS: G0463 ==

== ENCOUNTER 2022-12-24 01:29 | Day surgery (SDC) | payer OTHER, MEDICARE, BC | END 2022-12-24 23:21 | disposition home or self-care (01) | LOC: WOUND 01:29 | DX: L89.224 Pressure ulcer of left hip, stage 4 (principal); L89.323 Pressure ulcer of left buttock, stage 3; L89.152 Pressure ulcer of sacral region, stage 2 | CPT/HCPCS: G0463 ==

== ENCOUNTER 2022-12-31 02:59 | Day surgery (SDC) | payer OTHER, MEDICARE, BC | END 2022-12-31 22:58 | disposition home or self-care (01) | LOC: WOUND 02:59 | DX: L89.324 Pressure ulcer of left buttock, stage 4 (principal); L89.152 Pressure ulcer of sacral region, stage 2; D50.9 Iron deficiency anemia, unspecified; I10 Essential (primary) hypertension; K21.9 Gastro-esophageal reflux disease without esophagitis; Z87.891 Personal history of nicotine dependence | CPT/HCPCS: G0463 ==

== ENCOUNTER 2023-01-07 02:26 | Day surgery (SDC) | payer OTHER, MEDICARE, BC | END 2023-01-07 23:11 | disposition home or self-care (01) | LOC: WOUND 02:26 | DX: L89.323 Pressure ulcer of left buttock, stage 3 (principal); L89.152 Pressure ulcer of sacral region, stage 2; D50.9 Iron deficiency anemia, unspecified | CPT/HCPCS: G0463 ==

== ENCOUNTER 2023-01-14 05:06 | Day surgery (SDC) | payer OTHER, MEDICARE, BC | END 2023-01-14 22:48 | disposition home or self-care (01) | LOC: WOUND 05:06 | DX: L89.224 Pressure ulcer of left hip, stage 4 (principal); L89.323 Pressure ulcer of left buttock, stage 3; D50.9 Iron deficiency anemia, unspecified | CPT/HCPCS: G0463 ==

== ENCOUNTER 2023-01-21 03:01 | Day surgery (SDC) | payer MEDICARE, BC, OTHER | END 2023-01-21 23:05 | disposition home or self-care (01) | LOC: WOUND 03:01 | DX: L89.224 Pressure ulcer of left hip, stage 4 (principal); L89.323 Pressure ulcer of left buttock, stage 3; L89.152 Pressure ulcer of sacral region, stage 2; D50.9 Iron deficiency anemia, unspecified | CPT/HCPCS: G0463 ==

== ENCOUNTER 2023-01-28 01:20 | Day surgery (SDC) | payer OTHER, MEDICARE, BC | END 2023-01-28 22:51 | disposition home or self-care (01) | LOC: WOUND 01:20 | DX: L89.224 Pressure ulcer of left hip, stage 4 (principal); M10.9 Gout, unspecified; K21.9 Gastro-esophageal reflux disease without esophagitis; I10 Essential (primary) hypertension; Z87.891 Personal history of nicotine dependence; L89.323 Pressure ulcer of left buttock, stage 3; L89.152 Pressure ulcer of sacral region, stage 2; D50.9 Iron deficiency anemia, unspecified | CPT/HCPCS: G0463 ==

== ENCOUNTER 2023-02-05 01:33 | Day surgery (SDC) | payer OTHER, MEDICARE, BC | END 2023-02-05 22:41 | disposition home or self-care (01) | LOC: WOUND 01:33 | DX: L89.224 Pressure ulcer of left hip, stage 4 (principal); K21.9 Gastro-esophageal reflux disease without esophagitis; M10.9 Gout, unspecified; I10 Essential (primary) hypertension; Z87.891 Personal history of nicotine dependence; D50.9 Iron deficiency anemia, unspecified; L89.323 Pressure ulcer of left buttock, stage 3; L89.152 Pressure ulcer of sacral region, stage 2 | CPT/HCPCS: G0463 ==

== ENCOUNTER 2023-02-18 04:45 | Day surgery (SDC) | payer OTHER, MEDICARE, BC | END 2023-02-18 23:01 | disposition home or self-care (01) | LOC: WOUND 04:45 | DX: L89.324 Pressure ulcer of left buttock, stage 4 (principal); L89.152 Pressure ulcer of sacral region, stage 2; M19.90 Unspecified osteoarthritis, unspecified site; I10 Essential (primary) hypertension; E55.9 Vitamin D deficiency, unspecified; M10.9 Gout, unspecified; D50.9 Iron deficiency anemia, unspecified; Z87.891 Personal history of nicotine dependence | CPT/HCPCS: G0463 ==

== ENCOUNTER 2023-03-12 01:32 | Day surgery (SDC) | payer OTHER, MEDICARE, BC | END 2023-03-12 23:40 | disposition home or self-care (01) | LOC: WOUND 01:32 | DX: L89.323 Pressure ulcer of left buttock, stage 3 (principal); L89.152 Pressure ulcer of sacral region, stage 2; D50.9 Iron deficiency anemia, unspecified; K21.9 Gastro-esophageal reflux disease without esophagitis; I10 Essential (primary) hypertension; G82.20 Paraplegia, unspecified; N31.9 Neuromuscular dysfunction of bladder, unspecified; Z87.891 Personal history of nicotine dependence | CPT/HCPCS: G0463 ==

== ENCOUNTER 2023-03-19 03:30 | Day surgery (SDC) | payer OTHER, MEDICARE, BC | END 2023-03-19 22:45 | disposition home or self-care (01) | LOC: WOUND 03:30 | DX: L89.224 Pressure ulcer of left hip, stage 4 (principal); L89.323 Pressure ulcer of left buttock, stage 3; L89.152 Pressure ulcer of sacral region, stage 2; D50.9 Iron deficiency anemia, unspecified | CPT/HCPCS: G0463 ==

== ENCOUNTER 2023-04-01 04:52 | Day surgery (SDC) | payer OTHER, MEDICARE, BC | END 2023-04-01 23:39 | disposition home or self-care (01) | LOC: WOUND 04:52 | DX: L89.324 Pressure ulcer of left buttock, stage 4 (principal); L89.152 Pressure ulcer of sacral region, stage 2; D50.9 Iron deficiency anemia, unspecified; I10 Essential (primary) hypertension; K21.9 Gastro-esophageal reflux disease without esophagitis; Z87.891 Personal history of nicotine dependence | CPT/HCPCS: G0463 ==

== ENCOUNTER 2023-04-17 03:03 | Day surgery (SDC) | payer OTHER, MEDICARE, BC | END 2023-04-17 22:38 | disposition home or self-care (01) | LOC: WOUND 03:03 | DX: L89.323 Pressure ulcer of left buttock, stage 3 (principal); L89.152 Pressure ulcer of sacral region, stage 2; D50.9 Iron deficiency anemia, unspecified | CPT/HCPCS: G0463 ==

== ENCOUNTER 2023-04-30 02:40 | Day surgery (SDC) | payer OTHER, MEDICARE, BC | END 2023-04-30 23:04 | disposition home or self-care (01) | LOC: WOUND 02:40 | DX: L89.323 Pressure ulcer of left buttock, stage 3 (principal); L89.152 Pressure ulcer of sacral region, stage 2; E11.621 Type 2 diabetes mellitus with foot ulcer; D50.9 Iron deficiency anemia, unspecified; K21.9 Gastro-esophageal reflux disease without esophagitis; I10 Essential (primary) hypertension; Z87.891 Personal history of nicotine dependence; Z86.711 Personal history of pulmonary embolism | CPT/HCPCS: G0463 ==

== ENCOUNTER 2023-05-07 01:28 | Day surgery (SDC) | payer OTHER, MEDICARE, BC | END 2023-05-07 23:02 | disposition home or self-care (01) | LOC: WOUND 01:28 | DX: L89.324 Pressure ulcer of left buttock, stage 4 (principal); L89.152 Pressure ulcer of sacral region, stage 2; D50.9 Iron deficiency anemia, unspecified; G82.20 Paraplegia, unspecified; N31.9 Neuromuscular dysfunction of bladder, unspecified; I10 Essential (primary) hypertension; K21.9 Gastro-esophageal reflux disease without esophagitis; Z87.891 Personal history of nicotine dependence; Z86.711 Personal history of pulmonary embolism | CPT/HCPCS: G0463 ==

== ENCOUNTER 2023-05-21 04:58 | Day surgery (SDC) | payer OTHER, MEDICARE, BC | END 2023-05-21 23:10 | disposition home or self-care (01) | LOC: WOUND 04:58 | DX: L89.324 Pressure ulcer of left buttock, stage 4 (principal); L89.152 Pressure ulcer of sacral region, stage 2; K21.9 Gastro-esophageal reflux disease without esophagitis; I10 Essential (primary) hypertension; Z87.891 Personal history of nicotine dependence; Z86.711 Personal history of pulmonary embolism | CPT/HCPCS: G0463 ==

== ENCOUNTER 2023-06-04 05:02 | Day surgery (SDC) | payer OTHER, MEDICARE, BC | END 2023-06-04 22:57 | disposition home or self-care (01) | LOC: WOUND 05:02 | DX: L89.324 Pressure ulcer of left buttock, stage 4 (principal); L89.152 Pressure ulcer of sacral region, stage 2; K21.9 Gastro-esophageal reflux disease without esophagitis; I10 Essential (primary) hypertension; Z87.891 Personal history of nicotine dependence | CPT/HCPCS: G0463 ==

== ENCOUNTER 2023-06-11 01:40 | Day surgery (SDC) | payer OTHER, MEDICARE, BC | END 2023-06-11 23:07 | disposition home or self-care (01) | LOC: WOUND 01:40 | DX: L89.323 Pressure ulcer of left buttock, stage 3 (principal); L89.152 Pressure ulcer of sacral region, stage 2; D50.9 Iron deficiency anemia, unspecified | CPT/HCPCS: G0463 ==

== ENCOUNTER 2023-06-18 02:07 | Day surgery (SDC) | payer OTHER, MEDICARE, BC | END 2023-06-18 23:07 | disposition home or self-care (01) | LOC: WOUND 02:07 | DX: L89.324 Pressure ulcer of left buttock, stage 4 (principal); L89.152 Pressure ulcer of sacral region, stage 2; D50.9 Iron deficiency anemia, unspecified; K21.9 Gastro-esophageal reflux disease without esophagitis; I10 Essential (primary) hypertension; G82.20 Paraplegia, unspecified; Z86.711 Personal history of pulmonary embolism; Z87.891 Personal history of nicotine dependence | CPT/HCPCS: G0463 ==

== ENCOUNTER 2023-06-25 04:50 | Day surgery (SDC) | payer OTHER, MEDICARE, BC | END 2023-06-25 23:10 | disposition home or self-care (01) | LOC: WOUND 04:50 | DX: L89.324 Pressure ulcer of left buttock, stage 4 (principal); L89.152 Pressure ulcer of sacral region, stage 2; D50.9 Iron deficiency anemia, unspecified; I10 Essential (primary) hypertension; K21.9 Gastro-esophageal reflux disease without esophagitis; Z87.891 Personal history of nicotine dependence; Z86.711 Personal history of pulmonary embolism | CPT/HCPCS: G0463 ==

== ENCOUNTER 2023-07-02 01:36 | Day surgery (SDC) | payer OTHER, MEDICARE, BC | END 2023-07-02 23:27 | disposition home or self-care (01) | LOC: WOUND 01:36 | DX: L89.224 Pressure ulcer of left hip, stage 4 (principal); M10.9 Gout, unspecified; K21.9 Gastro-esophageal reflux disease without esophagitis; Z86.711 Personal history of pulmonary embolism; I10 Essential (primary) hypertension; Z87.891 Personal history of nicotine dependence; F32.A Depression, unspecified; L89.323 Pressure ulcer of left buttock, stage 3; L89.152 Pressure ulcer of sacral region, stage 2; D50.9 Iron deficiency anemia, unspecified | CPT/HCPCS: G0463 ==

== ENCOUNTER 2023-07-09 01:56 | Day surgery (SDC) | payer OTHER, MEDICARE, BC | END 2023-07-09 23:01 | disposition home or self-care (01) | LOC: WOUND 01:56 | DX: L89.324 Pressure ulcer of left buttock, stage 4 (principal); L89.152 Pressure ulcer of sacral region, stage 2; D50.9 Iron deficiency anemia, unspecified; I10 Essential (primary) hypertension; K21.9 Gastro-esophageal reflux disease without esophagitis; Z87.891 Personal history of nicotine dependence; R19.4 Change in bowel habit | CPT/HCPCS: 74018; G0463 ==

== ENCOUNTER 2023-07-16 01:29 | Day surgery (SDC) | payer OTHER, MEDICARE, BC | END 2023-07-16 23:04 | disposition home or self-care (01) | LOC: WOUND 01:29 | DX: L89.154 Pressure ulcer of sacral region, stage 4 (principal); L89.323 Pressure ulcer of left buttock, stage 3; I10 Essential (primary) hypertension; K21.9 Gastro-esophageal reflux disease without esophagitis; M19.90 Unspecified osteoarthritis, unspecified site; D50.9 Iron deficiency anemia, unspecified; Z87.891 Personal history of nicotine dependence | CPT/HCPCS: A6213; G0463 ==

== ENCOUNTER 2023-10-01 02:44 | Day surgery (SDC) | payer OTHER, MEDICARE, BC | END 2023-10-01 23:00 | disposition home or self-care (01) | LOC: WOUND 02:44 | DX: L89.323 Pressure ulcer of left buttock, stage 3 (principal); L89.152 Pressure ulcer of sacral region, stage 2; D50.9 Iron deficiency anemia, unspecified; I10 Essential (primary) hypertension; K21.9 Gastro-esophageal reflux disease without esophagitis; Z87.891 Personal history of nicotine dependence | CPT/HCPCS: A6213 ==

== ENCOUNTER 2023-10-08 03:43 | Day surgery (SDC) | payer OTHER, MEDICARE, BC | END 2023-10-08 23:16 | disposition home or self-care (01) | LOC: WOUND 03:43 | DX: L89.324 Pressure ulcer of left buttock, stage 4 (principal); L89.152 Pressure ulcer of sacral region, stage 2; D50.9 Iron deficiency anemia, unspecified; G82.20 Paraplegia, unspecified; K21.9 Gastro-esophageal reflux disease without esophagitis; I10 Essential (primary) hypertension; M19.90 Unspecified osteoarthritis, unspecified site; Z86.711 Personal history of pulmonary embolism; Z87.891 Personal history of nicotine dependence | CPT/HCPCS: A6213; G0463 ==

== ENCOUNTER 2023-11-30 02:33 | Day surgery (SDC) | payer OTHER, MEDICARE, BC | END 2023-11-30 23:38 | disposition home or self-care (01) | LOC: WOUND 02:33 | DX: L89.324 Pressure ulcer of left buttock, stage 4 (principal); L89.152 Pressure ulcer of sacral region, stage 2; D50.9 Iron deficiency anemia, unspecified; M10.9 Gout, unspecified; K21.9 Gastro-esophageal reflux disease without esophagitis; E55.9 Vitamin D deficiency, unspecified; I10 Essential (primary) hypertension; Z87.891 Personal history of nicotine dependence | CPT/HCPCS: A6213; G0463 ==

== ENCOUNTER 2023-12-24 03:12 | Day surgery (SDC) | payer OTHER, MEDICARE, BC | END 2023-12-24 22:59 | disposition home or self-care (01) | LOC: WOUND 03:12 | DX: L89.324 Pressure ulcer of left buttock, stage 4 (principal); L89.152 Pressure ulcer of sacral region, stage 2; D50.9 Iron deficiency anemia, unspecified; I10 Essential (primary) hypertension; K21.9 Gastro-esophageal reflux disease without esophagitis; Z87.891 Personal history of nicotine dependence | CPT/HCPCS: A6213; G0463 ==

== ENCOUNTER 2024-01-28 02:19 | Day surgery (SDC) | payer OTHER, MEDICARE, BC | END 2024-01-28 22:53 | disposition home or self-care (01) | LOC: WOUND 02:19 | DX: L89.324 Pressure ulcer of left buttock, stage 4 (principal); L89.229 Pressure ulcer of left hip, unspecified stage; D50.9 Iron deficiency anemia, unspecified; I10 Essential (primary) hypertension; G82.21 Paraplegia, complete; K21.9 Gastro-esophageal reflux disease without esophagitis; Z86.711 Personal history of pulmonary embolism; Z87.891 Personal history of nicotine dependence | CPT/HCPCS: A6213; G0463 ==

== ENCOUNTER 2024-02-18 03:03 | Day surgery (SDC) | payer OTHER, MEDICARE, BC | END 2024-02-18 23:11 | disposition home or self-care (01) | LOC: WOUND 03:03 | DX: L89.324 Pressure ulcer of left buttock, stage 4 (principal); L89.152 Pressure ulcer of sacral region, stage 2; D50.9 Iron deficiency anemia, unspecified; K21.9 Gastro-esophageal reflux disease without esophagitis; I10 Essential (primary) hypertension; Z87.891 Personal history of nicotine dependence | CPT/HCPCS: A6213; G0463 ==

== ENCOUNTER 2024-03-03 02:22 | Day surgery (SDC) | payer OTHER, MEDICARE, BC | END 2024-03-03 23:00 | disposition home or self-care (01) | LOC: WOUND 02:22 | DX: L89.324 Pressure ulcer of left buttock, stage 4 (principal); L89.152 Pressure ulcer of sacral region, stage 2; D50.9 Iron deficiency anemia, unspecified; K21.9 Gastro-esophageal reflux disease without esophagitis; I10 Essential (primary) hypertension; Z87.891 Personal history of nicotine dependence | CPT/HCPCS: A6213; G0463 ==

== ENCOUNTER 2024-03-15 02:48 | Day surgery (SDC) | payer OTHER, MEDICARE, BC | END 2024-03-15 23:00 | disposition home or self-care (01) | LOC: WOUND 02:48 | DX: L89.323 Pressure ulcer of left buttock, stage 3 (principal); L89.152 Pressure ulcer of sacral region, stage 2; D50.9 Iron deficiency anemia, unspecified; K21.9 Gastro-esophageal reflux disease without esophagitis; I10 Essential (primary) hypertension; E55.9 Vitamin D deficiency, unspecified; M10.9 Gout, unspecified | CPT/HCPCS: A6213; G0463 ==

== ENCOUNTER 2024-03-24 03:01 | Day surgery (SDC) | payer OTHER, MEDICARE, BC | END 2024-03-24 23:33 | disposition home or self-care (01) | LOC: WOUND 03:01 | DX: L89.324 Pressure ulcer of left buttock, stage 4 (principal); D50.9 Iron deficiency anemia, unspecified; I10 Essential (primary) hypertension; I73.9 Peripheral vascular disease, unspecified; G82.21 Paraplegia, complete; N31.9 Neuromuscular dysfunction of bladder, unspecified; K21.9 Gastro-esophageal reflux disease without esophagitis; Z87.891 Personal history of nicotine dependence | CPT/HCPCS: A6213 ==

== ENCOUNTER 2024-03-31 03:33 | Day surgery (SDC) | payer OTHER, MEDICARE, BC | END 2024-03-31 23:00 | disposition home or self-care (01) | LOC: WOUND 03:33 | DX: L89.324 Pressure ulcer of left buttock, stage 4 (principal); L89.152 Pressure ulcer of sacral region, stage 2; D50.9 Iron deficiency anemia, unspecified | CPT/HCPCS: A6213 ==

== ENCOUNTER 2024-04-07 04:58 | Day surgery (SDC) | payer OTHER, MEDICARE, BC | END 2024-04-07 23:00 | disposition home or self-care (01) | LOC: WOUND 04:58 | DX: L89.324 Pressure ulcer of left buttock, stage 4 (principal); G82.21 Paraplegia, complete; N31.9 Neuromuscular dysfunction of bladder, unspecified; I10 Essential (primary) hypertension; I73.9 Peripheral vascular disease, unspecified; M06.9 Rheumatoid arthritis, unspecified; K21.9 Gastro-esophageal reflux disease without esophagitis; Z87.891 Personal history of nicotine dependence; D50.9 Iron deficiency anemia, unspecified | CPT/HCPCS: A6213 ==

== ENCOUNTER 2024-04-14 04:36 | Day surgery (SDC) | payer OTHER, MEDICARE, BC | END 2024-04-14 23:33 | disposition home or self-care (01) | LOC: WOUND 04:36 | DX: L89.324 Pressure ulcer of left buttock, stage 4 (principal); D50.9 Iron deficiency anemia, unspecified; G82.20 Paraplegia, unspecified; N31.9 Neuromuscular dysfunction of bladder, unspecified; I10 Essential (primary) hypertension; K21.9 Gastro-esophageal reflux disease without esophagitis; Z87.891 Personal history of nicotine dependence | CPT/HCPCS: A6213 ==

== ENCOUNTER 2024-04-26 01:12 | Day surgery (SDC) | payer OTHER, MEDICARE, BC | END 2024-04-26 23:36 | disposition home or self-care (01) | LOC: WOUND 01:12 | DX: L89.323 Pressure ulcer of left buttock, stage 3 (principal); L89.512 Pressure ulcer of right ankle, stage 2; D50.9 Iron deficiency anemia, unspecified | CPT/HCPCS: A6213; G0463 ==

== ENCOUNTER 2024-05-03 04:32 | Day surgery (SDC) | payer OTHER, MEDICARE, BC | END 2024-05-03 23:00 | disposition home or self-care (01) | LOC: WOUND 04:32 | DX: L89.324 Pressure ulcer of left buttock, stage 4 (principal); D50.9 Iron deficiency anemia, unspecified; G82.21 Paraplegia, complete; N31.9 Neuromuscular dysfunction of bladder, unspecified; I10 Essential (primary) hypertension; K21.9 Gastro-esophageal reflux disease without esophagitis; Z87.891 Personal history of nicotine dependence | CPT/HCPCS: A6213; G0463 ==

== ENCOUNTER 2024-05-10 02:52 | Day surgery (SDC) | payer OTHER, MEDICARE, BC | END 2024-05-10 23:00 | disposition home or self-care (01) | LOC: WOUND 02:52 | DX: L89.324 Pressure ulcer of left buttock, stage 4 (principal); L89.152 Pressure ulcer of sacral region, stage 2; D50.9 Iron deficiency anemia, unspecified; M10.9 Gout, unspecified; K21.9 Gastro-esophageal reflux disease without esophagitis; E55.9 Vitamin D deficiency, unspecified; I10 Essential (primary) hypertension; Z87.891 Personal history of nicotine dependence | CPT/HCPCS: A6213 ==

== ENCOUNTER 2024-05-17 04:25 | Day surgery (SDC) | payer OTHER, MEDICARE, BC ==
[~2024-05-17 04:25] MED LIST changes: +FEBU40TA PO; -GABA100 PO; +GABA300 PO; +LISI20 PO; -Prinivil10 MG PO; -Uloric80 MG PO; +ZOLP10 PO
[2024-05-18] MEDS ORDERED: Ketoconazole120 ML TOP (22:28)
[2024-05-18] MEDS ORDERED: ROSUVASTATIN CA10 MG PO (22:29)
[2024-05-18] MEDS ORDERED: OMEP20ER PO (22:29)
[2024-05-18] MEDS ORDERED: METOPROLOL SUCC25 MG PO (22:30)
[2024-05-18] MEDS ORDERED: AMLODIPINE BES2.5 MG PO (22:32)
== END 2024-05-17 23:00 | disposition home or self-care (01) ==
LOC: WOUND 04:25
DX: L89.324 Pressure ulcer of left buttock, stage 4 (principal); D50.9 Iron deficiency anemia, unspecified; G82.20 Paraplegia, unspecified; N31.9 Neuromuscular dysfunction of bladder, unspecified; I10 Essential (primary) hypertension; K21.9 Gastro-esophageal reflux disease without esophagitis; Z87.891 Personal history of nicotine dependence
CPT/HCPCS: A6213; G0463

== ENCOUNTER 2024-05-18 13:54 | Inpatient (IN) | payer OTHER, MEDICARE, BC ==
[~2024-05-18] VITALS: Ht 162.6 cm; Wt 76.7 kg
[2024-05-18 16:30] LABS: BASOPHILS ABSOLUTE AUTO 0.02 K/mm3 (0.00-0.23); BASOPHILS PERCENT AUTO 0 % (0-2); EOSINOPHILS ABSOLUTE AUTO 0.07 K/mm3 (0.00-0.68); EOSINOPHILS PERCENT AUTO 1 % (0-6); Hematocrit 32.8 % (37.0-53.0); IMMATURE GRAN ABSOLUTE AUTO 0.09 K/mm3 (0.00-0.10); IMMATURE GRAN PERCENT AUTO 1 % (0-1); LYMPHOCYTES ABSOLUTE AUTO 1.15 K/mm3 (0.84-5.20); LYMPHOCYTES PERCENT AUTO 9 % (21-46); MONOCYTES ABSOLUTE AUTO 1.43 K/mm3 (0.16-1.47); MONOCYTES PERCENT AUTO 11 % (4-13); Mean Corpuscular HGB 32.9 pg (26.0-34.0); Mean Corpuscular HGB Conc 33.5 g/dL (31.5-36.5); Mean Corpuscular Volume 98 fL (80-100); Mean Platelet Volume 9.7 fL (9.1-12.4); NEUTROPHILS ABSOLUTE AUTO 10.04 K/mm3 (1.96-9.15); NEUTROPHILS PERCENT AUTO 78 % (41-73); Platelet Count 347 K/mm3 (150-400); RDW Coefficient Variation 14.4 % (11.7-14.2); RDW Standard Deviation 51.8 fL (35.1-46.3); Red Blood Cell Count 3.34 M/mm3 (4.30-5.90)
[2024-05-18 16:52] LABS: Albumin, Blood 2.8 g/dL (3.4-5.0); Albumin/Globulin Ratio 0.6 (0.8-1.8); Bilirubin, Total 0.4 mg/dL (0.1-1.0); Creatinine, Blood 0.75 mg/dL (0.60-1.20); Globulin, Blood 4.5 g/dL (2.2-4.0); Potassium, Blood 3.9 mmol/L (3.5-5.5); Total Protein, Blood 7.3 g/dL (6.4-8.2)
[2024-05-18] MEDS ORDERED: Zolpidem Tartrate 5 MG Tab PO PRN (19:35)
[2024-05-18] MEDS ORDERED: Ondansetron HCl 2 MG / ML 2ML Vial IV PRN (19:40)
[2024-05-18] MEDS ORDERED: NS 1,000 ML IV SCH (19:40)
[2024-05-18] MEDS ORDERED: Piperacillin/Tazobactam Sod 3.375 GM in NS 100 ML IV ONE (20:40)
[2024-05-18] MEDS ORDERED: FLU VACC TS2024-25(6MOS UP)/PF 45 MCG/0.5 ML SYRINGE IM ONE (21:00)
[2024-05-18] MEDS ORDERED: Gabapentin 300 MG Cap PO SCH (21:00)
[2024-05-18] MEDS ORDERED: Lactobacil 2-S.Thermo-Bifido 1 1 Cap PO SCH (21:00)
[2024-05-18 22:27] VITALS: BP 119/54
[2024-05-18] MEDS ORDERED: Ketoconazole120 ML TOP (22:28)
[2024-05-18] MEDS ORDERED: ROSUVASTATIN CA10 MG PO (22:29)
[2024-05-18] MEDS ORDERED: OMEP20ER PO (22:29)
[2024-05-18] MEDS ORDERED: METOPROLOL SUCC25 MG PO (22:30)
[2024-05-18] MEDS ORDERED: AMLODIPINE BES2.5 MG PO (22:32)
--- NOTE | 2024-05-18 23:01 | NUR ---
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 ED RN REPORTED PT HAS HAD IT FOR 7 YRS, HAS BEEN PARAPLEGIC SINCE 1978. ALERT AND OREINTED. VSS. REQUESTED AND RECEIVED SNACK. WILL BE NPO AFTER MIDNIGHT FOR REPORTED SURGERY ON AREA IN THE AM. ORINTED TO USE OF CALL LIGHT. ED RN REPORTED PT ABLE TO REPOSITION SELF IN BED. CALL LIGHT IN REACH, RAILS UP X 2 AND BED IN LOW POSITION. WILL CONT TO MONITOR
[2024-05-18 23:46] LABS: Source, Urine Straight Cath
[2024-05-19] VITALS (15 sets, daily range): BP systolic 98–134; BP diastolic 50–94
[2024-05-19 00:44] LABS: Bilirubin, Urine Neg (Neg); Blood, Urine 5+ (Neg); Glucose Qualitative, Urine Neg (Neg); Ketones, Urine 1+ (Neg); Leukocyte Esterase, Urine 2+ (Neg); Nitrite, Urine Neg (Neg); Protein, Urine 3+ (Neg); Urobilinogen, Urine 2+ (Normal)
[2024-05-19 00:51] LABS: Color, Urine Brown (P-Yellow)
[2024-05-19 00:52] LABS: Appearance, Urine Cloudy (Clear)
[2024-05-19 00:53] LABS: Bacteria Many /hpf; Squamous Epithelial Cells Many /hpf (Few); White Blood Cells, Urine 50-100 /hpf (0-5)
[2024-05-19 00:54] LABS: Amorphous Mod (0-Heavy); Yeast/Fungi Urine Few /hpf
--- NOTE | 2024-05-19 03:30 | NUR ---
RESEARCH PHYSICIAN SUMMARY 74 YR OLD MALE ADMITTED TO FLOOR EARLIER IN THE SHIFT WITH DX OF INFECTED DQ ULCER OF BUTTOCK - SEE PICS IN CHART. IS PARALYZED, REPORTS NO FEELING BELOW WAIST. NPO FOR POSSIBLE SURGERY IN THE AM OF SAID ULCER. HAS BEEN RESTING QUIETLY WITH FEW INTERRUPTIONS. ABLE TO REPOSITION SELF IN BED WITHOUT ASSIST. RAILS UP X 2, BED IN LOW POSITION AND CALL LIGHT IN REACH FOR SAFETY. IV ANTIBIOTICS AND IVF IN FUSING - SEE MAR FOR DETAILS. WILL CONT TO MONITOR, VSS.
[2024-05-19] MEDS ORDERED: Omeprazole 20 MG CapCR PO SCH (06:00)
[2024-05-19] MEDS ORDERED: Piperacillin/Tazobactam Sod 3.375 GM in NS 100 ML IV SCH (06:00)
[2024-05-19] MEDS ORDERED: Lisinopril 20 MG Tab PO SCH (09:00)
[2024-05-19] MEDS ORDERED: Aspirin 81 MG Chew PO SCH (09:00)
[2024-05-19] MEDS ORDERED: ValACYClovir HCL 500 MG Tab PO SCH (09:00)
[2024-05-19] MEDS ORDERED: AmLODIPine Besylate 5 MG Tab PO SCH (09:00)
[2024-05-19] MEDS ORDERED: Atorvastatin 10 MG Tab PO SCH (09:00)
[2024-05-19] MEDS ORDERED: Arginine/Glutamine/Calcium Hmb 1 Packet PO SCH (09:00)
[2024-05-19] MEDS ORDERED: Metoprolol Succinate 25 MG TABCR PO SCH (09:00)
[2024-05-19 09:01] LABS: BASOPHILS ABSOLUTE AUTO 0.02 K/mm3 (0.00-0.23); BASOPHILS PERCENT AUTO 0 % (0-2); EOSINOPHILS ABSOLUTE AUTO 0.13 K/mm3 (0.00-0.68); EOSINOPHILS PERCENT AUTO 1 % (0-6); Hematocrit 26.5 % (37.0-53.0); Hemoglobin 8.7 g/dL (13.5-17.5); IMMATURE GRAN ABSOLUTE AUTO 0.06 K/mm3 (0.00-0.10); IMMATURE GRAN PERCENT AUTO 1 % (0-1); LYMPHOCYTES ABSOLUTE AUTO 1.63 K/mm3 (0.84-5.20); LYMPHOCYTES PERCENT AUTO 14 % (21-46); MONOCYTES ABSOLUTE AUTO 1.42 K/mm3 (0.16-1.47); MONOCYTES PERCENT AUTO 12 % (4-13); Mean Corpuscular HGB 32.1 pg (26.0-34.0); Mean Corpuscular HGB Conc 32.8 g/dL (31.5-36.5); Mean Corpuscular Volume 98 fL (80-100); Mean Platelet Volume 9.7 fL (9.1-12.4); NEUTROPHILS ABSOLUTE AUTO 8.19 K/mm3 (1.96-9.15); NEUTROPHILS PERCENT AUTO 72 % (41-73); Platelet Count 300 K/mm3 (150-400); RDW Coefficient Variation 14.8 % (11.7-14.2); RDW Standard Deviation 53.1 fL (35.1-46.3); Red Blood Cell Count 2.71 M/mm3 (4.30-5.90); White Blood Cell Count 11.45 K/mm3 (4.00-11.30)
[2024-05-19 09:19] LABS: Albumin, Blood 2.1 g/dL (3.4-5.0); Albumin/Globulin Ratio 0.6 (0.8-1.8); Bilirubin, Total 0.6 mg/dL (0.1-1.0); Bun/Creatinine Ratio 7.4 (12.0-20.0); Calcium, Blood 8.1 mg/dL (8.5-10.1); Creatinine, Blood 0.81 mg/dL (0.60-1.20); Globulin, Blood 3.6 g/dL (2.2-4.0); Potassium, Blood 3.5 mmol/L (3.5-5.5); Total Protein, Blood 5.7 g/dL (6.4-8.2)
--- NOTE | 2024-05-19 11:28 | NUR ---
PER DR. HOPKINS, PT IS ON LIST FOR TODAY. MD WILL UPDATE WITH CHANGES
[2024-05-19] MEDS ORDERED: Lactated Ringer's 1,000 ML IV SCH (14:25)
[2024-05-19] MEDS ORDERED: Bupivacaine 0.5% HCl 5 MG/ML 30MLVIAL ONE (14:36)
[2024-05-19] MEDS ORDERED: Dexamethasone Sod Phos 10 MG/ML 1ML VIAL ONE (15:17)
[2024-05-19] MEDS ORDERED: Ondansetron HCl 2 MG / ML 2ML Vial ONE (15:17)
[2024-05-19] MEDS ORDERED: FentaNYL Citrate 50 MCG/ML 2 ML Injection ONE (15:17)
[2024-05-19] MEDS ORDERED: propofoL 20 ML IV ONE (15:17)
[2024-05-19] MEDS ORDERED: ePHEDrine Sulfate 50 MG/ML 1ML Injection ONE (15:35)
[2024-05-19] MEDS ORDERED: Glycopyrrolate 0.2 MG/ML 5ML VIAL ONE (15:58)
[2024-05-19] MEDS ORDERED: Acetaminophen 325 MG TABLET PO PRN (16:50)
[2024-05-19] MEDS ORDERED: OxyCODONE 5 mg/Acetamin 325 mg TABLET PO PRN (16:50)
--- NOTE | 2024-05-19 19:14 | NUR ---
PT IS BACK FROM PROCEDURE WITH WOUND VAC IN PLACE. NO ACUTE CHANGES, PT DENIES PAIN, PT TURNED Q2 HRS, ORIENTED X4, ABLE TO MAKE NEEDS KNOWN.
--- NOTE | 2024-05-20 04:23 | NUR ---
INFUSION NURSE SUMMARY VSS. HAD SURGERY ON DQ OF BUTTOCK AREA ON DAY SHIFT WITH WOUND VAC ATTACHED. DENIED PAIN WHEN ASKED. IV ANTIBIOTICS AND IVF INFUSING PER MD ORDERS - SEE MAR FOR DETAILS. AWAKE AT INTERVALS, USING PERSONAL LAP TOP COMPUTER. REPOSITIONED INTERMITTENTLY. LEBLANC DRAINING CLEAR MIC. CALL LIGHT IN REACH, RAILS UP X 2 AND BED IN LOW POSITION FOR SAFETY. WILL CONTINUE TO MONITOR.
[2024-05-20 05:56] LABS: BASOPHILS ABSOLUTE AUTO 0.01 K/mm3 (0.00-0.23); BASOPHILS PERCENT AUTO 0 % (0-2); EOSINOPHILS PERCENT AUTO 0 % (0-6); Hematocrit 27.6 % (37.0-53.0); Hemoglobin 9.1 g/dL (13.5-17.5); IMMATURE GRAN ABSOLUTE AUTO 0.05 K/mm3 (0.00-0.10); IMMATURE GRAN PERCENT AUTO 1 % (0-1); LYMPHOCYTES ABSOLUTE AUTO 0.52 K/mm3 (0.84-5.20); LYMPHOCYTES PERCENT AUTO 5 % (21-46); MONOCYTES ABSOLUTE AUTO 0.33 K/mm3 (0.16-1.47); MONOCYTES PERCENT AUTO 3 % (4-13); Mean Corpuscular HGB 31.9 pg (26.0-34.0); Mean Corpuscular Volume 97 fL (80-100); Mean Platelet Volume 9.6 fL (9.1-12.4); NEUTROPHILS ABSOLUTE AUTO 8.81 K/mm3 (1.96-9.15); NEUTROPHILS PERCENT AUTO 91 % (41-73); Platelet Count 350 K/mm3 (150-400); RDW Coefficient Variation 14.5 % (11.7-14.2); RDW Standard Deviation 51.2 fL (35.1-46.3); Red Blood Cell Count 2.85 M/mm3 (4.30-5.90); White Blood Cell Count 9.72 K/mm3 (4.00-11.30)
[2024-05-20 06:04] VITALS: BP 111/59
[2024-05-20 06:27] LABS: Albumin/Globulin Ratio 0.5 (0.8-1.8); Bilirubin, Total 0.4 mg/dL (0.1-1.0); Bun/Creatinine Ratio 24.4 (12.0-20.0); Calcium, Blood 8.6 mg/dL (8.5-10.1); Creatinine, Blood 0.57 mg/dL (0.60-1.20)
[2024-05-20 07:19] VITALS: BP 123/65
[2024-05-20 15:33] VITALS: BP 125/67
--- NOTE | 2024-05-20 17:08 | NUR ---
SHIFT SUMMARY: NO EVENTS OR CHANGES WITH THE PATIENT THROUGHOUT THE SHIFT. HE IS A&OX4, PLEASANT AND COOPERATIVE WITH CARE. HIS HAD A GOOD SEAL ON HIS WOUND VAC, DR. HOPKINS ROUNDED AND STATED HE WOULD CHANGE THE WOUND VAC ON Thursday05/22/24. PATIENT LAYING IN BED, ON HIS LAP TOP, CALL LIGHT WITHIN REACH, NO SIGNS OR SYMPTOMS OF DISTRESS, IV FLUIDS GOING, PATIENT BEING TURNED Q2 HOURS, PATIENT AWAITING SNF PLACEMENT. PLAN OF CARE ONGOING.
[2024-05-20 19:24] VITALS: BP 116/68
[2024-05-21 04:15] VITALS: BP 120/67
[2024-05-21 07:21] VITALS: BP 125/69
--- NOTE | 2024-05-21 07:52 | NUR ---
SHIFT SUMMARY 2340 PT VOMITED SMALL AMOUNT DARK LIQUID. STOMACH STILL DISTENDED AND FIRM. PT STATED SOON I THREW UP, I IMMEDIATELY FELT BETTER. PT DENIES FEELING ANY MORE NAUSEA AT THIS TIME. PT SLEPT UNTIL 0100. WOKE RESTLESS, BUT COULD NOT FALL ASLEEP AGAIN UNTIL 0400. MEDICATED WITH MORNING MEDS.
[2024-05-21 09:37] LABS: BASOPHILS ABSOLUTE AUTO 0.02 K/mm3 (0.00-0.23); BASOPHILS PERCENT AUTO 0 % (0-2); EOSINOPHILS ABSOLUTE AUTO 0.15 K/mm3 (0.00-0.68); EOSINOPHILS PERCENT AUTO 2 % (0-6); Hematocrit 28.8 % (37.0-53.0); Hemoglobin 9.3 g/dL (13.5-17.5); IMMATURE GRAN ABSOLUTE AUTO 0.09 K/mm3 (0.00-0.10); IMMATURE GRAN PERCENT AUTO 1 % (0-1); LYMPHOCYTES ABSOLUTE AUTO 1.67 K/mm3 (0.84-5.20); LYMPHOCYTES PERCENT AUTO 16 % (21-46); MONOCYTES ABSOLUTE AUTO 0.64 K/mm3 (0.16-1.47); MONOCYTES PERCENT AUTO 6 % (4-13); Mean Corpuscular HGB Conc 32.3 g/dL (31.5-36.5); Mean Corpuscular Volume 99 fL (80-100); Mean Platelet Volume 9.7 fL (9.1-12.4); NEUTROPHILS ABSOLUTE AUTO 7.61 K/mm3 (1.96-9.15); NEUTROPHILS PERCENT AUTO 75 % (41-73); Platelet Count 410 K/mm3 (150-400); RDW Coefficient Variation 14.7 % (11.7-14.2); RDW Standard Deviation 53.9 fL (35.1-46.3); Red Blood Cell Count 2.91 M/mm3 (4.30-5.90); White Blood Cell Count 10.18 K/mm3 (4.00-11.30)
[2024-05-21 09:59] LABS: Albumin, Blood 2.2 g/dL (3.4-5.0); Albumin/Globulin Ratio 0.6 (0.8-1.8); Bilirubin, Total 0.4 mg/dL (0.1-1.0); Bun/Creatinine Ratio 34.5 (12.0-20.0); Calcium, Blood 8.7 mg/dL (8.5-10.1); Creatinine, Blood 0.72 mg/dL (0.60-1.20); Globulin, Blood 3.9 g/dL (2.2-4.0); Potassium, Blood 3.6 mmol/L (3.5-5.5); Total Protein, Blood 6.1 g/dL (6.4-8.2)
--- NOTE | 2024-05-21 15:01 | NUR ---
SHIFT SUMMARY PT AWAKE DURING SHIFT REPORT THIS AM. ADMITTED FOR INFECTED DECUB. ULCER; DEBRIDEMENT DONE YESTERDAY WITH WOUND VAC PLACEMENT. DR HOPKINS IN EARLY TO SEE PT AND DISCUSS PLAN OF CARE. DR HOPKINS TO RETURN TOMORROW TO CHANGE WOUND VAC TO L HIP ULCER. PT IS PARAPLEGIC WITH T9 SPINAL INJURY, W/C BOUND AT BASELINE. LEBLANC TO GRAVITY; PATENT. NS INFUSING PER EMAR. DR ANTHONY IN TO SEE PT LATER THIS AM. PT TO D/C TO SNF WHEN STABLE. RESTING QUIETLY AT THIS TIME. CALL LT IN REACH.
[2024-05-21 15:49] VITALS: BP 106/61
[2024-05-21 19:34] VITALS: BP 112/63
[2024-05-22 03:12] VITALS: BP 134/68
[2024-05-22 05:31] LABS: BASOPHILS ABSOLUTE AUTO 0.03 K/mm3 (0.00-0.23); BASOPHILS PERCENT AUTO 0 % (0-2); EOSINOPHILS ABSOLUTE AUTO 0.29 K/mm3 (0.00-0.68); EOSINOPHILS PERCENT AUTO 3 % (0-6); Hematocrit 27.1 % (37.0-53.0); Hemoglobin 8.7 g/dL (13.5-17.5); IMMATURE GRAN ABSOLUTE AUTO 0.18 K/mm3 (0.00-0.10); IMMATURE GRAN PERCENT AUTO 2 % (0-1); LYMPHOCYTES ABSOLUTE AUTO 1.94 K/mm3 (0.84-5.20); LYMPHOCYTES PERCENT AUTO 23 % (21-46); MONOCYTES ABSOLUTE AUTO 0.84 K/mm3 (0.16-1.47); MONOCYTES PERCENT AUTO 10 % (4-13); Mean Corpuscular HGB 31.6 pg (26.0-34.0); Mean Corpuscular HGB Conc 32.1 g/dL (31.5-36.5); Mean Corpuscular Volume 99 fL (80-100); Mean Platelet Volume 9.7 fL (9.1-12.4); NEUTROPHILS ABSOLUTE AUTO 5.24 K/mm3 (1.96-9.15); NEUTROPHILS PERCENT AUTO 61 % (41-73); Platelet Count 361 K/mm3 (150-400); RDW Coefficient Variation 14.7 % (11.7-14.2); RDW Standard Deviation 52.8 fL (35.1-46.3); Red Blood Cell Count 2.75 M/mm3 (4.30-5.90); White Blood Cell Count 8.52 K/mm3 (4.00-11.30)
[2024-05-22 06:19] LABS: Albumin/Globulin Ratio 0.6 (0.8-1.8); Bilirubin, Total 0.4 mg/dL (0.1-1.0); Bun/Creatinine Ratio 24.7 (12.0-20.0); Calcium, Blood 8.2 mg/dL (8.5-10.1); Creatinine, Blood 0.77 mg/dL (0.60-1.20); Globulin, Blood 3.3 g/dL (2.2-4.0); Potassium, Blood 3.4 mmol/L (3.5-5.5); Total Protein, Blood 5.3 g/dL (6.4-8.2)
--- NOTE | 2024-05-22 07:02 | NUR ---
SHIFT SUMMARY AT START OF SHIFT, PT LYING IN BED, WATCHING TV. AFTER 2100 MEDS, PT SLEEPING IN HIS BED COMFORTABLY. 0310, PT STATED HE COULD ADJUST HIMSELF AND REFUSED ASSISTANCE TO BE REPOSITIONED. 0515, THIS RN WENT INTO ROOM TO PROVIDE CATH CARE, AND NOTICED PT HAD HAD A LARGE, LIQUID BM. UPON CLEANING PT, THIS RN NOTED THAT WOUND DRESSING HAD PULLED OFF AROUND OUTER EDGES, AND STOOL HAD ENTERED WOUND AREA. AFTER DISCUSSING SITUATION WITH LORNE Puckett, VETERINARIAN P[employer], THIS RN MADE CLINICAL JUDGEMENT CALL TO REMOVE WOUND DRESSING AND CLEAN AREA WELL. FOAM PACKING CLEANED AND LEFT IN WOUND, IT WAS HARD AND COULD NOT BE REMOVED EASILY. MEPILEX APPLIED OVER AREA OF WOUND TO MAINTAIN CLEANLINESS. WILL LEAVE IS FOR DR. WATKINS TO PROVIDE WOUND CARE THIS AM. 0615, PT HIPS FLOATED AND LYING IN BED RESTING.
[2024-05-22 07:06] VITALS: BP 129/66
[2024-05-22 16:01] VITALS: BP 132/65
--- NOTE | 2024-05-22 18:14 | NUR ---
SHIFT SUMMARY PT AWAKE AT START OF SHIFT, WORKING ON COMPUTER. DEAN AND CO-OP. DR HOPKINS IN TO SEE PT AND REPORT THAT HE WOULD RETURN TO REPLACE WOUND VAC DRSG, WHICH HE DID THIS AFTERNOON. PT CLEANED AND LINENS CHANGED AGAIN FOR BOWEL INCONTINENCE. DR ANTHONY IN TO SEE PT AND DISCUSS PLAN OF CARE. PT STABLE FOR D/C TO SNF WHEN BED AVAILABLE. PT IS A&O AND ABLE TO MAKE NEEDS KNOWN. SITTING UP EATING DINNER AT THIS TIME. CALL LT IN REACH.
[2024-05-22 19:23] VITALS: BP 121/63
[2024-05-23 02:43] VITALS: BP 145/70
--- NOTE | 2024-05-23 06:23 | NUR ---
SHIFT SUMMARY PT RESTING COMFORTABLY. 0015, BRIEF CHANGE, PT HAD LARGE, LOOSE BM. FECES HAD GONE UNDER WOUND DRESSING. DRESSING CHANGED. WHILE CHANGING, IT WAS NOTED THAT THE WOUND VAC WAS NOT ATTACHED OR TURNED ON. THIS RN ENSURED SUCTION WAS ACHIEVED AND WOUND VAC WAS PROPERLY FUNCTIONING. PT NOW LYING IN BED READING. 0140, PT ASKED FOR TOWELS, HIS COMPUTER TO BE PUT AWAY, AND SETTLED INTO BED, READY TO SLEEP. PT SLEEPING COMFORTABLY, WAKING FOR MORNING MEDICATIONS. PT STATED HE WAS GOING TO TRY TO GET BACK TO SLEEP.
[2024-05-23 07:33] VITALS: BP 141/77
[2024-05-23 08:33] LABS: BASOPHILS ABSOLUTE AUTO 0.04 K/mm3 (0.00-0.23); BASOPHILS PERCENT AUTO 0 % (0-2); EOSINOPHILS ABSOLUTE AUTO 0.37 K/mm3 (0.00-0.68); EOSINOPHILS PERCENT AUTO 4 % (0-6); Hematocrit 26.8 % (37.0-53.0); Hemoglobin 8.8 g/dL (13.5-17.5); IMMATURE GRAN ABSOLUTE AUTO 0.13 K/mm3 (0.00-0.10); IMMATURE GRAN PERCENT AUTO 1 % (0-1); LYMPHOCYTES ABSOLUTE AUTO 1.63 K/mm3 (0.84-5.20); LYMPHOCYTES PERCENT AUTO 18 % (21-46); MONOCYTES ABSOLUTE AUTO 0.95 K/mm3 (0.16-1.47); MONOCYTES PERCENT AUTO 10 % (4-13); Mean Corpuscular HGB 32.2 pg (26.0-34.0); Mean Corpuscular HGB Conc 32.8 g/dL (31.5-36.5); Mean Corpuscular Volume 98 fL (80-100); Mean Platelet Volume 9.2 fL (9.1-12.4); NEUTROPHILS ABSOLUTE AUTO 6.11 K/mm3 (1.96-9.15); NEUTROPHILS PERCENT AUTO 66 % (41-73); Platelet Count 345 K/mm3 (150-400); RDW Coefficient Variation 14.7 % (11.7-14.2); Red Blood Cell Count 2.73 M/mm3 (4.30-5.90); White Blood Cell Count 9.23 K/mm3 (4.00-11.30)
[2024-05-23 08:49] LABS: Bun/Creatinine Ratio 25.8 (12.0-20.0); Calcium, Blood 8.3 mg/dL (8.5-10.1); Creatinine, Blood 0.66 mg/dL (0.60-1.20); Potassium, Blood 3.9 mmol/L (3.5-5.5)
[2024-05-23] MEDS ORDERED: Simethicone 80 MG Chew PO PRN (11:25)
[2024-05-23 15:53] VITALS: BP 138/70
[2024-05-23] MEDS ORDERED: Gabapentin 300 MG Cap PO SCH ×2 (17:36→21:00)
--- NOTE | 2024-05-23 18:25 | NUR ---
SHIFT SUMMARY PARAPLEGIC REPOSITIONINNG IN BED WITH PILLOWS. TRYING TO KEEP OFF WOUND VAC SITE TO LEFT BUTTOCK. WOUND VAC WAS SOILED WITH LOOSE STOOL THIS MORNING, WHOLE DRESSING AND VAC TUBING REPLACED. DR. BROWER ORDERED BANANA FLAKES TO START TONIGHT FOR THE LOOSE STOOLS. DR. HOPKINS WAS MADE AWARE OF THE FREQUENT CHANGING OF THE WOUND VAC DRESSING LAST NIGHT AND TODAY. WOUND MEASURED 4 CM DEEP, 7CM BY 7CM. LEBLANC CARE COMPLETED, DR. BROWER CHANGED ORDER TO KEEP LEBLANC IN DUE TO PERINEAL WOUND HEALING PURPOSES. ABLE TO MAKE NEEDS KNOWN. CALL LIGHT IN REACH. BED LOCKED IN LOW POSITION.
[2024-05-23 19:30] VITALS: BP 124/63
[2024-05-23] MEDS ORDERED: Banana Flakes/Tos 1 EA Powder Pack PO SCH (21:00)
--- NOTE | 2024-05-24 03:52 | NUR ---
SHIFT SUMMARY ADMITTED FOR NON-HEALING DECUBITUS ULCER, STG. 3 (SINCE 2018). FULL CODE. I&D PERFORMED ON LEFT BUTTOCK/PERINEUM AREA ON 05/19, WOUND VAC IN PLACE. DR. HOPKINS IS SURGICAL CONSULT. LEBLANC IN PLACE - HE STRAIGHT CATHS SELF 3 X'S/DAY AT HOME. ON RA. INCONTINENT. REGULAR DIET. A&O X4. HE IS A 39 YEAR PARAPLEGIC T-9 INJURY. HE LIVES ALONE. HE SELF TRANSFERS/SLIDES TO WHEELCHAIR AT HOME. HE HAS BEEN SEEING THE WOUND CLINIC FOR THIS. ANTIB RX ARE COMPLETE. IV FLUIDS INFUSING ORDERED. PLAN IS FOR DC TO SNF AND TO RECEIVE FURTHER WOUND CARE.
[2024-05-24 05:04] VITALS: BP 131/67
[2024-05-24 07:56] LABS: BASOPHILS ABSOLUTE AUTO 0.03 K/mm3 (0.00-0.23); BASOPHILS PERCENT AUTO 0 % (0-2); EOSINOPHILS ABSOLUTE AUTO 0.44 K/mm3 (0.00-0.68); EOSINOPHILS PERCENT AUTO 4 % (0-6); Hematocrit 29.1 % (37.0-53.0); Hemoglobin 9.4 g/dL (13.5-17.5); IMMATURE GRAN ABSOLUTE AUTO 0.15 K/mm3 (0.00-0.10); IMMATURE GRAN PERCENT AUTO 1 % (0-1); LYMPHOCYTES ABSOLUTE AUTO 1.57 K/mm3 (0.84-5.20); LYMPHOCYTES PERCENT AUTO 14 % (21-46); MONOCYTES ABSOLUTE AUTO 1.18 K/mm3 (0.16-1.47); MONOCYTES PERCENT AUTO 11 % (4-13); Mean Corpuscular HGB 31.9 pg (26.0-34.0); Mean Corpuscular HGB Conc 32.3 g/dL (31.5-36.5); Mean Corpuscular Volume 99 fL (80-100); Mean Platelet Volume 9.2 fL (9.1-12.4); NEUTROPHILS ABSOLUTE AUTO 7.61 K/mm3 (1.96-9.15); NEUTROPHILS PERCENT AUTO 69 % (41-73); Platelet Count 359 K/mm3 (150-400); RDW Coefficient Variation 14.8 % (11.7-14.2); RDW Standard Deviation 53.1 fL (35.1-46.3); Red Blood Cell Count 2.95 M/mm3 (4.30-5.90); White Blood Cell Count 10.98 K/mm3 (4.00-11.30)
[2024-05-24 08:01] VITALS: BP 146/71
[2024-05-24 08:11] LABS: Bun/Creatinine Ratio 21.6 (12.0-20.0); Calcium, Blood 8.6 mg/dL (8.5-10.1); Creatinine, Blood 0.65 mg/dL (0.60-1.20); Potassium, Blood 3.7 mmol/L (3.5-5.5)
[2024-05-24 12:24] LABS: CORONAVIRUS COVID-19 AG Negative (NEGATIVE)
--- NOTE | 2024-05-24 13:56 | NUR ---
DISCHARGE NOTE PT DISCHARGED TO SNF AT 1345. PT A&OX4, VSS, W/C AT BASELINE, TOLERATING PO, VOIDING, AND DENIED PAIN. DISCHARGE PACKET GIVEN TO TRANSPORT AND BELONGINGS RETURNED TO PT. LEBLANC CATH REMAINED IN PLACE AND WOUND VAC REMOVED AND MEPILEX PLACED OVER WOUND FOR TRANSPORT. PT ESCOURTED OUT VIA PT'S W/C BY TRANSPORT.
--- NOTE | 2024-05-24 14:05 | NUR ---
THIS NURSE CALLED [facility] AND GAVE REPORT TO BRENNON WELDON.
== END 2024-05-24 13:50 | DRG 299 ==
LOC: ER 13:54 → MEDS 19:40
PROVIDERS: Emergency Medicine; Family Medicine; Nurse Practitioner Acute Care; Student in an Organized Health Care Education/Training Program; Surgery; ADMIT Internal Medicine
PROC: 0HBJXZZ Excision of Left Upper Leg Skin, External Approach (ICD-10-PCS; 2024-05-19)
PROC: 0T9B70Z Drainage of Bladder with Drainage Device, Via Natural or Artificial Opening (ICD-10-PCS; principal; 2024-05-19 14:00)
DX: I96 Gangrene, not elsewhere classified (principal); L89.153 Pressure ulcer of sacral region, stage 3; L89.223 Pressure ulcer of left hip, stage 3; G82.20 Paraplegia, unspecified; I10 Essential (primary) hypertension; K21.9 Gastro-esophageal reflux disease without esophagitis; F32.A Depression, unspecified; M10.9 Gout, unspecified; R33.9 Retention of urine, unspecified; B96.1 Klebsiella pneumoniae [K. pneumoniae] as the cause of diseases classified elsewhere; F51.04 Psychophysiologic insomnia; N31.2 Flaccid neuropathic bladder, not elsewhere classified; R82.71 Bacteriuria; Z88.2 Allergy status to sulfonamides; Z88.1 Allergy status to other antibiotic agents; Z88.8 Allergy status to other drugs, medicaments and biological substances; Z91.048 Other nonmedicinal substance allergy status; Z79.82 Long term (current) use of aspirin; Z79.899 Other long term (current) drug therapy; Z79.811 Long term (current) use of aromatase inhibitors; Z79.2 Long term (current) use of antibiotics; Z90.89 Acquired absence of other organs; Z98.890 Other specified postprocedural states; Z86.711 Personal history of pulmonary embolism; Z87.440 Personal history of urinary (tract) infections; Z87.828 Personal history of other (healed) physical injury and trauma; Z86.19 Personal history of other infectious and parasitic diseases
CPT/HCPCS: 36415; 51702; 72193; 80048; 80053; 81001; 85025; 87077; 87086; 87186; 87426-QW; 93005; 93010; 97110; 97162; 99284-25; A9270; J1100; J2405; J2543; J2704; J3010; J7030; J7120; Q9967

== ENCOUNTER 2024-06-07 05:59 | Day surgery (SDC) | payer OTHER, MEDICARE, BC ==
[~2024-06-07 05:59] MED LIST changes: +AMLODIPINE BES2.5 MG PO; +Ketoconazole120 ML TOP; +OMEP20ER PO; +ROSUVASTATIN CA10 MG PO
== END 2024-06-07 23:00 | disposition home or self-care (01) ==
LOC: WOUND 05:59
DX: L89.324 Pressure ulcer of left buttock, stage 4 (principal); M10.9 Gout, unspecified; K21.9 Gastro-esophageal reflux disease without esophagitis; I10 Essential (primary) hypertension; L89.152 Pressure ulcer of sacral region, stage 2; D50.9 Iron deficiency anemia, unspecified; Z87.891 Personal history of nicotine dependence

== ENCOUNTER 2024-06-14 08:23 | Day surgery (SDC) | payer OTHER, MEDICARE, BC | END 2024-06-14 23:00 | disposition home or self-care (01) | LOC: WOUND 08:23 | DX: L89.324 Pressure ulcer of left buttock, stage 4 (principal); D50.9 Iron deficiency anemia, unspecified; G82.20 Paraplegia, unspecified; N31.9 Neuromuscular dysfunction of bladder, unspecified; I10 Essential (primary) hypertension; K21.9 Gastro-esophageal reflux disease without esophagitis; M10.9 Gout, unspecified; Z87.891 Personal history of nicotine dependence ==

== ENCOUNTER 2024-06-28 05:24 | Day surgery (SDC) | payer OTHER, MEDICARE, BC | END 2024-06-28 23:00 | disposition home or self-care (01) | LOC: WOUND 05:24 | DX: L89.324 Pressure ulcer of left buttock, stage 4 (principal); M10.9 Gout, unspecified; K21.9 Gastro-esophageal reflux disease without esophagitis; I10 Essential (primary) hypertension; D50.9 Iron deficiency anemia, unspecified; Z87.891 Personal history of nicotine dependence ==

== ENCOUNTER 2024-07-05 01:35 | Day surgery (SDC) | payer OTHER, MEDICARE, BC | END 2024-07-05 23:00 | disposition home or self-care (01) | LOC: WOUND 01:35 | DX: L89.324 Pressure ulcer of left buttock, stage 4 (principal); M10.9 Gout, unspecified; K21.9 Gastro-esophageal reflux disease without esophagitis; I10 Essential (primary) hypertension; D50.9 Iron deficiency anemia, unspecified; Z87.891 Personal history of nicotine dependence | CPT/HCPCS: A6213; G0463 ==

== ENCOUNTER 2024-07-12 09:28 | Day surgery (SDC) | payer OTHER, MEDICARE, BC ==
[2024-07-13] MEDS ORDERED: PROBIOTIC1 EA13 PO (19:14)
[2024-07-13] MEDS ORDERED: CEFD300 PO (19:14)
== END 2024-07-12 23:00 | disposition home or self-care (01) ==
LOC: WOUND 09:28
DX: L89.324 Pressure ulcer of left buttock, stage 4 (principal); D50.9 Iron deficiency anemia, unspecified; G82.20 Paraplegia, unspecified; I10 Essential (primary) hypertension; K21.9 Gastro-esophageal reflux disease without esophagitis; N31.9 Neuromuscular dysfunction of bladder, unspecified; Z87.891 Personal history of nicotine dependence
CPT/HCPCS: A6213; G0463

== ENCOUNTER 2024-07-13 15:19 | Emergency (ER) | payer OTHER, MEDICARE, BC ==
[~2024-07-13] VITALS: Ht 177.8 cm; Wt 79.4 kg
[2024-07-13] MEDS ORDERED: NS 1,000 ML IV SCH ×2 (16:05→18:25)
[2024-07-13] MEDS ORDERED: Lidocaine 2% Jelly Uro-Jet UR ONE (16:10)
[2024-07-13 16:12] LABS: BASOPHILS ABSOLUTE AUTO 0.03 K/mm3 (0.00-0.23); BASOPHILS PERCENT AUTO 0 % (0-2); EOSINOPHILS ABSOLUTE AUTO 0.11 K/mm3 (0.00-0.68); EOSINOPHILS PERCENT AUTO 1 % (0-6); Hematocrit 41.4 % (37.0-53.0); Hemoglobin 13.1 g/dL (13.5-17.5); IMMATURE GRAN ABSOLUTE AUTO 0.09 K/mm3 (0.00-0.10); IMMATURE GRAN PERCENT AUTO 1 % (0-1); LYMPHOCYTES ABSOLUTE AUTO 1.56 K/mm3 (0.84-5.20); LYMPHOCYTES PERCENT AUTO 10 % (21-46); MONOCYTES ABSOLUTE AUTO 1.26 K/mm3 (0.16-1.47); MONOCYTES PERCENT AUTO 8 % (4-13); Mean Corpuscular HGB 30.3 pg (26.0-34.0); Mean Corpuscular HGB Conc 31.6 g/dL (31.5-36.5); Mean Corpuscular Volume 96 fL (80-100); NEUTROPHILS ABSOLUTE AUTO 12.08 K/mm3 (1.96-9.15); NEUTROPHILS PERCENT AUTO 80 % (41-73); Platelet Count 325 K/mm3 (150-400); RDW Standard Deviation 56.9 fL (35.1-46.3); Red Blood Cell Count 4.32 M/mm3 (4.30-5.90); White Blood Cell Count 15.13 K/mm3 (4.00-11.30)
[2024-07-13 16:25] LABS: Albumin, Blood 3.4 g/dL (3.4-5.0); Albumin/Globulin Ratio 0.9 (0.8-1.8); Bilirubin, Total 0.4 mg/dL (0.1-1.0); Creatinine, Blood 0.88 mg/dL (0.60-1.20); Globulin, Blood 3.7 g/dL (2.2-4.0); Potassium, Blood 4.1 mmol/L (3.5-5.5); Total Protein, Blood 7.1 g/dL (6.4-8.2)
[2024-07-13 17:09] LABS: Source, Urine Foley catheter
[2024-07-13 17:12] LABS: Appearance, Urine Cloudy (Clear); Blood, Urine 4+ (Neg); Color, Urine Amber (P-Yellow); Glucose Qualitative, Urine Neg (Neg); Ketones, Urine 2+ (Neg); Leukocyte Esterase, Urine 2+ (Neg); Nitrite, Urine Pos (Neg); Protein, Urine 2+ (Neg); Specific Gravity, Urine 1.015 (1.003-1.022); Urobilinogen, Urine 2+ (Normal)
[2024-07-13 17:53] LABS: Bilirubin, Urine 2+ (Neg)
[2024-07-13 17:55] LABS: Bacteria Many /hpf; Calcium Oxalate Crystals Rare /hpf; Squamous Epithelial Cells Many /hpf (Few)
[2024-07-13 17:56] LABS: Amorphous Light (0-Heavy)
[2024-07-13] MEDS ORDERED: CefTRIAXone Sodium 1,000 MG in NS 100 ML IV ONE (18:05)
[2024-07-13 18:35] LABS: CORONAVIRUS COVID-19 AG Negative (NEGATIVE); INFLUENZA A AG Negative (NEGATIVE); INFLUENZA B AG Negative (NEGATIVE)
[2024-07-13] MEDS ORDERED: CEFD300 PO (19:14)
[2024-07-13] MEDS ORDERED: PROBIOTIC1 EA13 PO (19:14)
[2024-07-13 21:00] VITALS: BP 113/67
== END 2024-07-13 21:32 | disposition home or self-care (01) ==
LOC: ER 15:19
PROVIDERS: Student in an Organized Health Care Education/Training Program
DX: N39.0 Urinary tract infection, site not specified (principal); R11.2 Nausea with vomiting, unspecified; R19.7 Diarrhea, unspecified; G82.20 Paraplegia, unspecified; I10 Essential (primary) hypertension; K21.9 Gastro-esophageal reflux disease without esophagitis; M10.9 Gout, unspecified; Z96.0 Presence of urogenital implants; Z86.711 Personal history of pulmonary embolism; Z88.2 Allergy status to sulfonamides; Z88.1 Allergy status to other antibiotic agents; Z88.0 Allergy status to penicillin; Z91.048 Other nonmedicinal substance allergy status; Z79.82 Long term (current) use of aspirin; Z79.899 Other long term (current) drug therapy; Z59.89 Other problems related to housing and economic circumstances
CPT/HCPCS: 51702; 80053; 81001; 83690; 85025; 87428-QW; J0696; J7030

== ENCOUNTER → 2024-07-26 | Day surgery (SDC) | payer OTHER, MEDICARE, BC ==
[~2024-07-26] MED LIST changes: +CEFD300 PO
== END ==
LOC: WOUND 08:00
DX: L89.324 Pressure ulcer of left buttock, stage 4 (principal); D50.9 Iron deficiency anemia, unspecified; M10.9 Gout, unspecified; K21.9 Gastro-esophageal reflux disease without esophagitis; I10 Essential (primary) hypertension
CPT/HCPCS: A6213; G0463

== ENCOUNTER 2024-08-02 00:34 | Day surgery (SDC) | payer OTHER, MEDICARE, BC | END 2024-08-02 23:00 | disposition home or self-care (01) | LOC: WOUND 00:34 | DX: L89.324 Pressure ulcer of left buttock, stage 4 (principal); D50.9 Iron deficiency anemia, unspecified; I10 Essential (primary) hypertension; K21.9 Gastro-esophageal reflux disease without esophagitis; Z87.891 Personal history of nicotine dependence | CPT/HCPCS: A6213; G0463 ==

== ENCOUNTER 2024-08-09 03:30 | Day surgery (SDC) | payer OTHER, MEDICARE, BC | END 2024-08-09 23:17 | disposition home or self-care (01) | LOC: WOUND 03:30 | DX: L89.324 Pressure ulcer of left buttock, stage 4 (principal); D50.9 Iron deficiency anemia, unspecified; G82.20 Paraplegia, unspecified; N31.9 Neuromuscular dysfunction of bladder, unspecified; M15.9 Polyosteoarthritis, unspecified; M10.9 Gout, unspecified; K21.9 Gastro-esophageal reflux disease without esophagitis; I10 Essential (primary) hypertension; Z86.711 Personal history of pulmonary embolism; Z87.891 Personal history of nicotine dependence; Z79.82 Long term (current) use of aspirin; Z79.899 Other long term (current) drug therapy | CPT/HCPCS: A6213; G0463 ==

== ENCOUNTER 2024-08-16 00:40 | Day surgery (SDC) | payer OTHER, MEDICARE, BC | END 2024-08-16 23:11 | disposition home or self-care (01) | LOC: WOUND 00:40 | DX: L89.324 Pressure ulcer of left buttock, stage 4 (principal); D50.9 Iron deficiency anemia, unspecified; G82.20 Paraplegia, unspecified; N31.9 Neuromuscular dysfunction of bladder, unspecified; I10 Essential (primary) hypertension; K21.9 Gastro-esophageal reflux disease without esophagitis; Z87.891 Personal history of nicotine dependence | CPT/HCPCS: A6213; G0463 ==

== ENCOUNTER → 2024-09-06 | Day surgery (SDC) | payer OTHER, MEDICARE, BC | LOC: WOUND 02:28 | DX: L89.324 Pressure ulcer of left buttock, stage 4 (principal); D50.9 Iron deficiency anemia, unspecified; G82.21 Paraplegia, complete; K21.9 Gastro-esophageal reflux disease without esophagitis; I10 Essential (primary) hypertension; Z87.891 Personal history of nicotine dependence | CPT/HCPCS: A6213; G0463 ==

== ENCOUNTER 2024-09-13 04:31 | Day surgery (SDC) | payer OTHER, MEDICARE, BC | END 2024-09-13 23:11 | disposition home or self-care (01) | LOC: WOUND 04:31 | DX: Z09 Encounter for follow-up examination after completed treatment for conditions other than malignant neoplasm (principal); D50.9 Iron deficiency anemia, unspecified; I10 Essential (primary) hypertension; K21.9 Gastro-esophageal reflux disease without esophagitis; Z87.891 Personal history of nicotine dependence | CPT/HCPCS: G0463 ==

== ENCOUNTER 2025-04-11 00:28 | Day surgery (SDC) | payer OTHER | END 2025-04-11 22:55 | disposition home or self-care (01) | LOC: WOUND 00:28 | DX: L89.323 Pressure ulcer of left buttock, stage 3 (principal); G82.20 Paraplegia, unspecified; I10 Essential (primary) hypertension; I73.9 Peripheral vascular disease, unspecified; Z87.891 Personal history of nicotine dependence; Z88.1 Allergy status to other antibiotic agents; Z88.2 Allergy status to sulfonamides | CPT/HCPCS: A6213; G0463 ==

== ENCOUNTER 2025-04-18 01:41 | Day surgery (SDC) | payer OTHER | END 2025-04-18 23:21 | disposition home or self-care (01) | LOC: WOUND 01:41 | DX: L89.323 Pressure ulcer of left buttock, stage 3 (principal); G82.20 Paraplegia, unspecified; I10 Essential (primary) hypertension; Z87.891 Personal history of nicotine dependence | CPT/HCPCS: A6213 ==

== ENCOUNTER 2025-05-01 07:30 | Day surgery (SDC) | payer OTHER | END 2025-05-01 23:40 | disposition home or self-care (01) | LOC: WOUND 07:30 | DX: L89.323 Pressure ulcer of left buttock, stage 3 (principal); G82.20 Paraplegia, unspecified; N31.9 Neuromuscular dysfunction of bladder, unspecified; I10 Essential (primary) hypertension; K21.9 Gastro-esophageal reflux disease without esophagitis; Z87.891 Personal history of nicotine dependence | CPT/HCPCS: A6213; G0463 ==

== ENCOUNTER 2025-05-08 02:45 | Day surgery (SDC) | payer OTHER | END 2025-05-08 23:00 | disposition home or self-care (01) | LOC: WOUND 02:45 | DX: L89.323 Pressure ulcer of left buttock, stage 3 (principal); I10 Essential (primary) hypertension; G82.20 Paraplegia, unspecified | CPT/HCPCS: A6213; G0463 ==

== ENCOUNTER 2025-05-15 00:27 | Day surgery (SDC) | payer OTHER | END 2025-05-15 23:00 | disposition home or self-care (01) | LOC: WOUND 00:27 | DX: L89.323 Pressure ulcer of left buttock, stage 3 (principal); G82.20 Paraplegia, unspecified; I10 Essential (primary) hypertension | CPT/HCPCS: A6213; G0463 ==

== ENCOUNTER 2025-05-29 23:00 | Day surgery (SDC) | payer OTHER | END 2025-05-29 23:01 | disposition home or self-care (01) | LOC: WOUND 23:00 | DX: L89.323 Pressure ulcer of left buttock, stage 3 (principal); G82.20 Paraplegia, unspecified; I10 Essential (primary) hypertension; I73.9 Peripheral vascular disease, unspecified; Z87.891 Personal history of nicotine dependence | CPT/HCPCS: A6213; G0463 ==